=== PATIENT | male | born 1940 | race Caucasian/White ===

== ENCOUNTER 2017-10-24 10:23 | Emergency (ER) | payer MEDICARE, BC ==
[2017-10-24 10:58] LABS: URINE APPEARANCE CLEAR; URINE BILIRUBIN NEGATIVE (NEGATIVE); URINE BLOOD NEGATIVE (NEGATIVE); URINE COLOR YELLOW; URINE GLUCOSE (UA) NEGATIVE (NEGATIVE); URINE KETONE NEGATIVE (NEGATIVE); URINE LEUKOCYTE ESTERASE SMALL (NEGATIVE); URINE NITRITE NEGATIVE (NEGATIVE); URINE PROTEIN NEGATIVE (NEGATIVE); URINE UROBILINOGEN 0.2 E.U./dL (0.20 - 1.00)
[2017-10-24 11:04] LABS: URINE RBC 0 - 2 (NONE SEEN)
[2017-10-24 11:05] LABS: URINE EPITHELIAL CELLS 0 - 2 (FEW); URINE WBC 0 - 2 (0-2/hpf)
[2017-10-24] MEDS ORDERED: CIPROFLOXACIN HCL 500 MG TABLET PO ONE (11:54)
--- NOTE | 2017-10-24 11:54 | Emergency Department Record ---
History of Present Illness - General Chief complaint: Male Urogenital Problem Stated complaint: URINARY PROBLEMS Time Seen by Provider: 10/24/17 11:03 Source: Patient, RN notes reviewed Mode of Arrival: Ambulatory - History of Present Illness Initial comments: patient states burning of penis with urination and bladder scan done after urination 130 ml left in bladder and he is also on flomax. Onset/Timin -: Days(s) Radiation: None Quality: Aching Consistency: Constant Improves with: None Worsens with: None Reports: Dysuria - Related Data Home Medications Medication Instructions Recorded Confirmed Last Taken Linagliptin [Tradjenta] 5 mg PO DAILY 10/24/17 10/24/17 Unknown Previous Rx's Medication Instructions Recorded Rivaroxaban [Xarelto] 20 mg PO QPM #30 tablet 12/19/14 Ciprofloxacin HCl [Cipro] 500 mg PO Q12HR #20 tablet 10/24/17 Allergies Allergy/AdvReac Type Severity Reaction Status Date / Time morphine AdvReac Intermediate VOMITING Verified 05/03/16 08:49 Travel Screening - Travel/Exposure Within Last 30 Days Have you traveled within the last 30 days?: No Review of Systems Reviewed: No additional complaints except as noted below Constitutional: Reports: As per HPI. Denies: Chills, Fever, Malaise, Night sweats, Weakness, Weight change Eyes: Reports: As per HPI. Denies: Eye discharge, Eye pain, Photophobia, Vision change ENT: Reports: As per HPI. Denies: Congestion, Dental pain, Ear pain, Epistaxis , Hearing loss, Throat pain Respiratory: Reports: As per HPI. Denies: Cough, Dyspnea, Hemoptysis, Stridor, Wheezes Cardiovascular: Reports: As per HPI. Denies: Arrhythmia, Chest pain, Dyspnea on exertion, Edema, Murmurs, Orthopnea, Palpitations, Paroxysmal nocturnal dyspnea, Rheumatic Fever, Syncope Endocrine: Reports: As per HPI. Denies: Fatigue, Heat or cold intolerance, Polydipsia, Polyuria Gastrointestinal: Reports: As per HPI. Denies: Abdominal pain, Constipation, Diarrhea, Hematemesis, Hematochezia, Melena, Nausea, Vomiting Genitourinary: Reports: As per HPI. Denies: Dysuria, Frequency, Hematuria, Incontinence, Retention, Testicular pain, Testicular mass, Urgency Musculoskeletal: Reports: As per HPI. Denies: Arthralgia, Back pain, Gout, Joint swelling, Myalgia, Neck pain Skin: Reports: As per HPI. Denies: Bruising, Change in color, Change in hair/ nails, Lesions, Pruritus, Rash Neurological: Reports: As per HPI. Denies: Abnormal gait, Confusion, Headache, Numbness, Paresthesias, Seizure, Tingling, Tremors, Vertigo, Weakness Psychiatric: Reports: As per HPI. Denies: Anxiety, Auditory hallucinations, Depression, Homicidal thoughts, Suicidal thoughts, Visual hallucinations Hematological/Lymphatic: Reports: As per HPI. Denies: Anemia, Blood Clots, Easy bleeding, Easy bruising, Swollen glands Past Medical History - SOCIAL HISTORY Smoking Status: Former smoker - RESPIRATORY Hx Respiratory Disorders: No - CARDIOVASCULAR Hx Cardio Disorders: Yes Hx Cardiac Cath: Yes Hx Edema: Yes Hx Hypertension: Yes Hx Irregular Heartbeat: Yes (afib) - NEURO Hx Neuro Disorders: No - GI Hx GI Disorders: No Hx Diverticulitis: Yes - Hx Genitourinary Disorders: Yes Hx Prostate Problems: Yes (Takes Flomax) - ENDOCRINE Hx Endocrine Disorders: Yes Hx Diabetes: Yes Hx Thyroid Disease: Yes (hypo) - MUSCULOSKELETAL Hx Musculoskeletal Disorders: No - PSYCH Hx Psych Problems: No - HEMATOLOGY/ONCOLOGY Hx Hematology/Oncology Disorders: No Hx Bruising: Yes Hx 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) Hx Chemotherapy: No Hx Radiation Therapy: No Comment:: Bruising due to Xeralto medication Family Medical History Any Significant Family History?: Yes *Cancer Comment: Aunt Hx Heart Disease: Mother Physical Exam - General General Appearance: Alert, Oriented x3, Cooperative, No acute distress - Head Head exam: Normal inspection - Eye Eye exam: Normal appearance, PERRL Pupils: Normal accommodation - ENT ENT exam: Normal exam, Mucous membranes moist, Normal external ear exam, Normal orophraynx, TM's normal bilaterally Ear exam: Normal external inspection. negative: External canal tenderness Nasal Exam: Normal inspection. negative: Discharge, Sinus tenderness Mouth exam: Normal external inspection, Tongue normal Teeth exam: Normal inspection. negative: Dental caries Throat exam: Normal inspection. negative: Tonsillar erythema, Tonsillar exudate - Neck Neck exam: Normal inspection, Full ROM. negative: Tenderness - Respiratory Respiratory exam: Normal lung sounds bilaterally. negative: Respiratory distress - Cardiovascular Cardiovascular Exam: Regular rate, Normal rhythm, Normal heart sounds - GI/Abdominal GI/Abdominal exam: Soft, Normal bowel sounds. negative: Tenderness - Rectal Rectal exam: Deferred - exam: Deferred - Extremities Extremities exam: Normal inspection, Full ROM, Normal capillary refill. negative: Tenderness - Back Back exam: Reports: Normal inspection, Full ROM. Denies: Muscle spasm, Rash noted, Tenderness - Neurological Neurological exam: Alert, Normal gait, Oriented X3, Reflexes normal - Psychiatric Psychiatric exam: Normal affect, Normal mood - Skin Skin exam: Dry, Intact, Normal color, Warm Course Vital Signs 10/24/17 10:29 Temperature 97.8 F Pulse Rate 82 Respiratory 18 Rate Blood Pressure 101/83 Pulse Ox 97 Medical Decision Making - Lab Data Lab Results 10/24/17 Range/Units 10:44 Urine Color Yellow Urine Appearance Clear Urine pH 5.5 (5.0-8.0) Ur Specific [place] 1.020 (1.002-1.030) Urine Protein Negative (NEGATIVE) Urine Glucose (UA) Negative (NEGATIVE) Urine Ketones Negative (NEGATIVE) Urine Blood Negative (NEGATIVE) Urine Nitrite Negative (NEGATIVE) Urine Bilirubin Negative (NEGATIVE) Urine Urobilinogen 0.2 (0.20 - 1.00) E.U./dL Ur Leukocyte Esterase Small H (NEGATIVE) Urine RBC 0 - 2 (NONE SEEN) Urine WBC 0 - 2 (0-2/hpf) Ur Epithelial Cells 0 - 2 (FEW) Disposition Clinical Impression: Dysuria, Urethritis Disposition: Home, Self-Care Condition: (1) Good Instructions: Nonspecific Urethritis in Men (ED) Additional Instructions: follow up with family in 2-8 days Prescriptions: Ciprofloxacin HCl [Cipro] 500 mg PO Q12HR #20 tablet Forms: Patient Portal Access Time of Disposition: 11:55 Quality - Quality Measures Quality Measures: N/A - Blood Pressure Screening Does Patient Have Any of the Following: No, Active Dx of HTN Blood Pressure Classification: Pre-Hypertensive BP Reading Systolic Measurement: 101 Diastolic Measurement: 83 Screening for High Blood Pressure: < Pre-Hypertensive BP, F/U Documented > [ G8950] Pre-Hypertensive Follow-up Interventions: Referral to alternative/primary care provider.
[2017-10-24] MEDS: CIPROFLOXACIN HCL 500 MG TABLET PO ONE ×2 (11:59)
== END 2017-10-24 12:07 | disposition home or self-care (01) ==
LOC: ER 10:23
DX: N34.2 Other urethritis (principal); R30.0 Dysuria; I10 Essential (primary) hypertension; Z87.891 Personal history of nicotine dependence
CPT/HCPCS: 81001; 99283

== ENCOUNTER 2017-12-09 07:22 | Emergency (ER) | payer MEDICARE, BC ==
[2017-12-09] MEDS ORDERED: TOPICAL LIDOCAINE W/ EPI 5 ML TOP ONE (07:39)
[2017-12-09] MEDS ORDERED: OXYMETAZOLINE HCL 15 ML BTL NASAL ONE (07:39)
--- NOTE | 2017-12-09 07:40 | Emergency Department Record ---
History of Present Illness - General Chief complaint: Nosebleed/epistaxis Stated complaint: BLOODY NOSE ON BLOOD THINNERS Time Seen by Provider: 12/09/17 07:34 Source: Patient Mode of Arrival: Ambulatory Limitations: No limitations - History of Present Illness Initial comments: The patient is here due to a nose bleed out of the L nares for an hour. He denies any recent medical issues. The patient states he has a hx of similar problems and is on ASA and Xarelto. complaint: Epistaxis Onset/Timin -: Hour(s) Location: Nose Context-Epistaxis: Aspirin use, Other - Related Data Home Medications Medication Instructions Recorded Confirmed Last Taken Furosemide [Lasix] 20 mg PO ASDIR 12/09/17 12/09/17 12/09/17 Previous Rx's Medication Instructions Recorded Rivaroxaban [Xarelto] 20 mg PO QPM #30 tablet 12/19/14 Ciprofloxacin HCl [Cipro] 500 mg PO Q12HR #20 tablet 10/24/17 Allergies Allergy/AdvReac Type Severity Reaction Status Date / Time morphine AdvReac Intermediate VOMITING Verified 12/09/17 07:36 Travel Screening - Travel/Exposure Within Last 30 Days Have you traveled within the last 30 days?: No - Travel/Exposure Within Last Year Have you traveled outside the [place] in the last year?: No - Additonal Travel Details Have you been exposed to anyone with a communicable illness?: No Review of Systems Constitutional: Denies: Chills, Fever Past Medical History - SOCIAL HISTORY Smoking Status: Former smoker Alcohol Use: None Drug Use: None - RESPIRATORY Hx Respiratory Disorders: No - CARDIOVASCULAR Hx Cardio Disorders: Yes Hx Cardiac Cath: Yes Hx CHF: Yes Hx Edema: Yes Hx Heart Attack: Yes (2016) Hx Hypertension: Yes Hx Irregular Heartbeat: Yes (afib) - NEURO Hx Neuro Disorders: No - GI Hx GI Disorders: No Hx Diverticulitis: Yes - Hx Genitourinary Disorders: Yes Hx Prostate Problems: Yes (Takes Flomax) - ENDOCRINE Hx Endocrine Disorders: Yes Hx Diabetes: Yes Hx Thyroid Disease: Yes (hypo) - MUSCULOSKELETAL Hx Musculoskeletal Disorders: No - PSYCH Hx Psych Problems: No - HEMATOLOGY/ONCOLOGY Hx Hematology/Oncology Disorders: No Hx Bruising: Yes Hx 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) Hx Chemotherapy: No Hx Radiation Therapy: No Comment:: Bruising due to Xeralto medication Family Medical History Any Significant Family History?: No *Cancer Comment: Aunt Hx Heart Disease: Mother Physical Exam - General General Appearance: Alert, Oriented x3, Cooperative, No acute distress Course Vital Signs 12/09/17 07:32 Temperature 97.5 F L Pulse Rate [ 79 Pulse Ox Probe] Respiratory 16 Rate Blood Pressure 130/72 [Left Arm] Pulse Ox 99 - Reevaluation(s) Reevaluation #1: Procedure note: The L nares was prepped with TLE and Afrin. A possible bleeding source was cauterized over the medial septum anteriorly. There were no complications. 12/09/17 08:14 12/09/17 08:15 Reevaluation #2: The patient is doing very well at this time. He has had no further bleeding and is resting comfortably. 12/09/17 08:58 Disposition Disposition: Discharge Clinical Impression: Anterior epistaxis Disposition: Home, Self-Care Condition: (2) Stable Instructions: Nosebleed (ED) Additional Instructions: Please use saline spray in the L nares twice a day for 3 days. Please keep your appointment with your ENT doctor for Tuesday. Return to the ER for any recurrent bleeding or any problems. Forms: Patient Portal Access Time of Disposition: 09:06 Quality - Quality Measures Quality Measures: N/A - Blood Pressure Screening View Details: Yes Does Patient Have Any of the Following: No Blood Pressure Classification: Normal BP Reading Systolic Measurement: 98 Diastolic Measurement: 69 Screening for High Blood Pressure: < Normal BP, F/U Not Required > [G8783]
--- NOTE | 2017-12-12 10:54 | Emergency Department Record ---
History of Present Illness - General Chief complaint: Nosebleed/epistaxis Stated complaint: BLOODY NOSE ON BLOOD THINNERS Time Seen by Provider: 12/09/17 07:34 Source: Patient Mode of Arrival: Ambulatory Limitations: No limitations - History of Present Illness complaint: Epistaxis Onset/Timin -: Hour(s) Location: Nose Context-Epistaxis: Aspirin use, Other - Related Data Home Medications Medication Instructions Recorded Confirmed Last Taken Furosemide [Lasix] 20 mg PO ASDIR 12/09/17 12/09/17 12/09/17 Previous Rx's Medication Instructions Recorded Rivaroxaban [Xarelto] 20 mg PO QPM #30 tablet 12/19/14 Ciprofloxacin HCl [Cipro] 500 mg PO Q12HR #20 tablet 10/24/17 Allergies Allergy/AdvReac Type Severity Reaction Status Date / Time morphine AdvReac Intermediate VOMITING Verified 12/09/17 07:36 Travel Screening - Travel/Exposure Within Last 30 Days Have you traveled within the last 30 days?: No - Travel/Exposure Within Last Year Have you traveled outside the [place] in the last year?: No - Additonal Travel Details Have you been exposed to anyone with a communicable illness?: No Review of Systems Constitutional: Denies: Chills, Fever Past Medical History - SOCIAL HISTORY Smoking Status: Former smoker Alcohol Use: None Drug Use: None - RESPIRATORY Hx Respiratory Disorders: No - CARDIOVASCULAR Hx Cardio Disorders: Yes Hx Cardiac Cath: Yes Hx CHF: Yes Hx Edema: Yes Hx Heart Attack: Yes (2015) Hx Hypertension: Yes Hx Irregular Heartbeat: Yes (afib) - NEURO Hx Neuro Disorders: No - GI Hx GI Disorders: No Hx Diverticulitis: Yes - Hx Genitourinary Disorders: Yes Hx Prostate Problems: Yes (Takes Flomax) - ENDOCRINE Hx Endocrine Disorders: Yes Hx Diabetes: Yes Hx Thyroid Disease: Yes (hypo) - MUSCULOSKELETAL Hx Musculoskeletal Disorders: No - PSYCH Hx Psych Problems: No - HEMATOLOGY/ONCOLOGY Hx Hematology/Oncology Disorders: No Hx Bruising: Yes Hx 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) Hx Chemotherapy: No Hx Radiation Therapy: No Comment:: Bruising due to Xeralto medication Family Medical History Any Significant Family History?: No *Cancer Comment: Aunt Hx Heart Disease: Mother Physical Exam - General General Appearance: Alert, Oriented x3, Cooperative, No acute distress Limitations: No limitations - Head Head exam: Atraumatic - Eye Eye exam: Normal appearance, PERRL - ENT Nasal Exam: Active bleeding (There is bleeding from the anterior mid L nasal septum.). negative: Normal inspection, Discharge, Dried blood, Sinus tenderness Throat exam: Normal inspection. negative: Tonsillar erythema, Tonsillar exudate - Neck Neck exam: Normal inspection, Full ROM. negative: Lymphadenopathy, Meningismus , Tenderness - Respiratory Respiratory exam: Normal lung sounds bilaterally. negative: Respiratory distress - Cardiovascular Cardiovascular Exam: Regular rate, Normal rhythm, Normal heart sounds Course Vital Signs 12/09/17 12/09/17 07:32 09:15 Temperature 97.5 F L 97.5 F L Pulse Rate 58 L Pulse Rate [ 79 Pulse Ox Probe] Respiratory 16 16 Rate Blood Pressure 98/69 Blood Pressure 130/72 [Left Arm] Pulse Ox 99 99 Disposition Clinical Impression: Anterior epistaxis Disposition: Home, Self-Care Condition: (2) Stable Instructions: Nosebleed (ED) Additional Instructions: Please use saline spray in the L nares twice a day for 3 days. Please keep your appointment with your ENT doctor for Tuesday. Return to the ER for any recurrent bleeding or any problems. Forms: Patient Portal Access Quality - Quality Measures Quality Measures: N/A - Blood Pressure Screening View Details: Yes Does Patient Have Any of the Following: No Blood Pressure Classification: Normal BP Reading Systolic Measurement: 98 Diastolic Measurement: 69 Screening for High Blood Pressure: < Normal BP, F/U Not Required > [G8783]
== END 2017-12-09 09:15 | disposition home or self-care (01) ==
LOC: ER 07:22
DX: R04.0 Epistaxis (principal); I48.91 Unspecified atrial fibrillation; I10 Essential (primary) hypertension; E11.9 Type 2 diabetes mellitus without complications; I50.9 Heart failure, unspecified; I25.2 Old myocardial infarction; Z87.891 Personal history of nicotine dependence
CPT/HCPCS: 30901; 99283

== ENCOUNTER 2018-03-23 13:40 | Emergency (ER) | payer MEDICARE, BC ==
[2018-03-23] MEDS ORDERED: THROMBIN/GELATIN FOAM HEMOSTAT (THROMBI-GEL) TP ONE (13:55)
--- NOTE | 2018-03-23 14:01 | Emergency Department Record ---
History of Present Illness - General Chief complaint: Extremity Problem Stated complaint: LT ARM INJURY Time Seen by Provider: 03/23/18 13:52 Source: Patient Mode of Arrival: Ambulatory Limitations: No limitations - History of Present Illness Initial comments: The patient is here due to a skin tear on the L arm from yesterday. The patient bumped the L forearm yesterday near the elbow and suffered a 1 cm skin tear. He did clean it and replace it. (His Td is UTD) Due to being on Xarelto the lac has continued to bleed so he decided to come to the ER. He denies any pain or discomfort. MD Complaint: Extremity pain Onset/Timin -: Days(s) Location: Left, Arm History of Same: No Radiation: None Improves with: Nothing Worsens with: Nothing - Related Data Previous Rx's Medication Instructions Recorded Rivaroxaban [Xarelto] 20 mg PO QPM #30 tablet 12/19/14 Allergies Allergy/AdvReac Type Severity Reaction Status Date / Time morphine AdvReac Intermediate VOMITING Verified 12/09/17 07:36 Travel Screening - Travel/Exposure Within Last 30 Days Have you traveled within the last 30 days?: No Review of Systems Constitutional: Denies: Chills, Fever Past Medical History - SOCIAL HISTORY Smoking Status: Former smoker Alcohol Use: None Drug Use: None - RESPIRATORY Hx Respiratory Disorders: No - CARDIOVASCULAR Hx Cardio Disorders: Yes Hx Cardiac Cath: Yes Hx CHF: Yes Hx Edema: Yes Hx Heart Attack: Yes (2015) Hx Hypertension: Yes Hx Irregular Heartbeat: Yes (afib) - NEURO Hx Neuro Disorders: No - GI Hx GI Disorders: No Hx Diverticulitis: Yes - Hx Genitourinary Disorders: Yes Hx Prostate Problems: Yes (Takes Flomax) - ENDOCRINE Hx Endocrine Disorders: Yes Hx Diabetes: Yes Hx Thyroid Disease: Yes (hypo) - MUSCULOSKELETAL Hx Musculoskeletal Disorders: No - PSYCH Hx Psych Problems: No - HEMATOLOGY/ONCOLOGY Hx Hematology/Oncology Disorders: No Hx Bruising: Yes Hx 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) Hx Chemotherapy: No Hx Radiation Therapy: No Comment:: Bruising due to Xeralto medication Family Medical History Any Significant Family History?: Yes *Cancer Comment: Aunt Hx Heart Disease: Mother Physical Exam - General General Appearance: Alert, Cooperative, No acute distress - Head Head exam: Atraumatic, Normocephalic - Eye Eye exam: Normal appearance, PERRL - Extremities Extremities exam: Full ROM, Normal capillary refill, Tenderness, Other ( Presently the skin tear appears very clean and just very mildly oozing. There is no active bleeding.). negative: Normal inspection (There is a superficial skin tear to the L lateral proximal forearm. There is mild tenderness surrounding the wound. There is no swelling, bruising, or erythema present. ), Joint swelling Course Vital Signs 03/23/18 13:50 Temperature 98.2 F Pulse Rate [ 100 H Pulse Ox Probe] Respiratory 18 Rate Blood Pressure 114/74 [Right Arm] Pulse Ox 98 - Reevaluation(s) Reevaluation #1: I did discuss the need for a Thrombin pad to be placed on the wound with a Koban dressing. The patient is to keep it clean and dry for 2 days. 03/23/18 13:59 Disposition Disposition: Discharge Clinical Impression: Skin tear of elbow without complication Qualifiers: Encounter type: initial encounter Laterality: left Qualified Code(s): S51.012A - Laceration without foreign body of left elbow, initial encounter Disposition: Home, Self-Care Condition: (2) Stable Instructions: Laceration (ED) Additional Instructions: Please keep clean and dry and do not remove until Tuesday. Return to the ER for any problems. Forms: Patient Portal Access Time of Disposition: 14:00 Quality - Quality Measures Quality Measures: N/A - Blood Pressure Screening View Details: Yes Does Patient Have Any of the Following: No Blood Pressure Classification: Normal BP Reading Systolic Measurement: 114 Diastolic Measurement: 74 Screening for High Blood Pressure: < Normal BP, F/U Not Required > [G8783]
== END 2018-03-23 14:06 | disposition home or self-care (01) ==
LOC: ER 13:40
DX: S51.012A Laceration without foreign body of left elbow, initial encounter (principal); W22.8XXA Striking against or struck by other objects, initial encounter; I48.91 Unspecified atrial fibrillation; I25.2 Old myocardial infarction; I10 Essential (primary) hypertension; Z79.01 Long term (current) use of anticoagulants; Z95.818 Presence of other cardiac implants and grafts; Z87.891 Personal history of nicotine dependence
CPT/HCPCS: 99283

== ENCOUNTER 2018-04-30 11:01 | Emergency (ER) | payer MEDICARE, BC ==
[2018-04-30] MEDS ORDERED: HYDROCODONE/APAP 5/325MG TABLET PO ONE (11:21)
--- NOTE | 2018-04-30 11:22 | Emergency Department Record ---
History of Present Illness - General Chief Complaint: Back Pain/Injury Stated Complaint: BACK PAIN Time Seen by Provider: 04/30/18 11:15 Source: Patient Mode of Arrival: Ambulatory Limitations: No limitations - History of Present Illness Initial Comments: The patient is here due to R hip pain for 10-12 hours along with burning with urination. He has had similar problems before with a UTI. There is no reported back pain, AP, fever, chills, or vomiting. The patient is able to ambulate with minimal difficulty. MD Complaint: Other Onset/Timin -: Hour(s) Place: Home Context: Unknown Associated Symptoms: Difficulty urinating - Related Data Previous Rx's Medication Instructions Recorded Rivaroxaban [Xarelto] 20 mg PO QPM #30 tablet 12/19/14 Ciprofloxacin HCl [Cipro] 1 tab PO Q12H #14 tab 04/30/18 Hydrocodone/Acetaminophen [Bradley 1 each PO QID #12 tablet 04/30/18 5-325 Tablet] Allergies Allergy/AdvReac Type Severity Reaction Status Date / Time morphine AdvReac Intermediate VOMITING Verified 04/30/18 11:18 Travel Screening - Travel/Exposure Within Last 30 Days Have you traveled within the last 30 days?: No - Travel/Exposure Within Last Year Have you traveled outside the [place] in the last year?: No - Additonal Travel Details Have you been exposed to anyone with a communicable illness?: No - Travel Symptoms Symptom Screening: None Review of Systems Constitutional: Denies: Chills, Fever Eyes: Denies: Eye discharge ENT: Denies: Congestion Respiratory: Denies: Cough, Dyspnea Cardiovascular: Denies: Arrhythmia Past Medical History - SOCIAL HISTORY Smoking Status: Former smoker Alcohol Use: None Drug Use: None - RESPIRATORY Hx Respiratory Disorders: No - CARDIOVASCULAR Hx Cardio Disorders: Yes Hx Cardiac Cath: Yes Hx CHF: Yes Hx Edema: Yes Hx Heart Attack: Yes (2016) Hx Hypertension: Yes Hx Irregular Heartbeat: Yes (afib) - NEURO Hx Neuro Disorders: No - GI Hx GI Disorders: No Hx Diverticulitis: Yes - Hx Genitourinary Disorders: Yes Hx Prostate Problems: Yes (Takes Flomax) - ENDOCRINE Hx Endocrine Disorders: Yes Hx Diabetes: Yes Hx Thyroid Disease: Yes (hypo) - MUSCULOSKELETAL Hx Musculoskeletal Disorders: No - PSYCH Hx Psych Problems: No - HEMATOLOGY/ONCOLOGY Hx Hematology/Oncology Disorders: No Hx Bruising: Yes Hx 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) Hx Chemotherapy: No Hx Radiation Therapy: No Comment:: Bruising due to Xeralto medication Family Medical History Any Significant Family History?: No *Cancer Comment: Aunt Hx Heart Disease: Mother Physical Exam - General General Appearance: Alert, Oriented x3, Cooperative, No acute distress - Head Head exam: Atraumatic, Normocephalic, Normal inspection - Eye Eye exam: Normal appearance, PERRL - Neck Neck exam: Normal inspection, Full ROM. negative: Tenderness - Respiratory Respiratory exam: Normal lung sounds bilaterally. negative: Respiratory distress - Cardiovascular Cardiovascular Exam: Regular rate, Normal rhythm, Normal heart sounds - GI/Abdominal GI/Abdominal exam: Soft, Normal bowel sounds. negative: Rebound, Rigid, Tenderness (The abdomen is very soft and nontender.) - Extremities Extremities exam: Normal inspection, Full ROM (There is normal ROM of the R hip with mild pain.), Normal capillary refill. negative: Tenderness - Back Back exam: Reports: Normal inspection, Full ROM. Denies: CVA tenderness (R), CVA tenderness (L), Muscle spasm, Paraspinal tenderness, Rash noted, Tenderness , Vertebral tenderness - Neurological Neurological exam: Alert, Normal gait, Oriented X3. negative: Abnormal gait, Motor sensory deficit Course Vital Signs 04/30/18 11:07 Temperature 97.8 F Pulse Rate 98 H Respiratory 20 Rate Blood Pressure 112/58 Pulse Ox 98 - Reevaluation(s) Reevaluation #1: The patient is doing better at this time. He denies any AP, back pain or any hip pain. He is able to get up walking with no problems or difficulty. I did explain that the lab work was WNL's for him but it appears he does have a UTI. We will continue the Cipro and have the patient see his PCP later this week if needed. 04/30/18 12:18 Medical Decision Making - Data Complexity MDM Data: Labs Ordered and/or Reviewed, X-Ray Ordered and/or Reviewed - Lab Data Result diagrams: 04/30/18 11:33 04/30/18 11:33 - Radiology Data Radiology results: Report reviewed (R Hip: Neg.) Disposition Disposition: Discharge Clinical Impression: UTI (urinary tract infection) Qualifiers: Urinary tract infection type: acute cystitis Hematuria presence: without hematuria Qualified Code(s): N30.00 - Acute cystitis without hematuria Disposition: Home, Self-Care Condition: (2) Stable Instructions: Urinary Tract Infection in Men (ED) Additional Instructions: Please continue the Cipro and use the Bradley for pain. Please see your family doctor for recheck later this week. Return to the ER for any increased hip pain , fever, abdominal pain, back pain, or vomiting. Prescriptions: Ciprofloxacin HCl [Cipro] 1 tab PO Q12H #14 tab Hydrocodone/Acetaminophen [Bradley 5-325 Tablet] 1 each PO QID #12 tablet Forms: Patient Portal Access Time of Disposition: 12:22 Quality - Quality Measures Quality Measures: N/A - Blood Pressure Screening View Details: Yes Does Patient Have Any of the Following: No Blood Pressure Classification: Normal BP Reading Systolic Measurement: 112 Diastolic Measurement: 58 Screening for High Blood Pressure: < Normal BP, F/U Not Required > [G8783]
[2018-04-30 11:41] LABS: BASO % 0.1 % (0-6); EOS % 3.2 % (0-6); GRAN % 75.1 % (47-80); HEMATOCRIT 41.2 % (42.0-52.0); HEMOGLOBIN 13.6 gm/dl (14.0-18.0); LYMPH % 12.7 % (16-45); MEAN CELL VOLUME 90.7 fl (81-97); MEAN PLATELET VOLUME 10.2 fl (7.4-10.4); MONO % 8.9 % (0-9); PLATELET COUNT 207 K/uL (130-400); RED BLOOD COUNT 4.54 M/uL (4.40-5.70); RED CELL DISTRIBUTION WIDTH 13.1 % (11.5-14.5); WHITE BLOOD COUNT W/O DIFF 7.2 K/uL (4.2-12.2)
[2018-04-30 11:42] LABS: URINE APPEARANCE CLOUDY; URINE BILIRUBIN NEGATIVE (NEGATIVE); URINE BLOOD SMALL (NEGATIVE); URINE COLOR YELLOW; URINE GLUCOSE (UA) NEGATIVE (NEGATIVE); URINE KETONE NEGATIVE (NEGATIVE); URINE LEUKOCYTE ESTERASE LARGE (NEGATIVE); URINE NITRITE NEGATIVE (NEGATIVE); URINE PROTEIN TRACE (NEGATIVE); URINE UROBILINOGEN 0.2 E.U./dL (0.20 - 1.00)
[2018-04-30 11:44] LABS: MEAN CORPUSCULAR HEMOGLOBIN 29.9 pg (27-33)
[2018-04-30 11:51] LABS: URINE BACTERIA NONE SEEN; URINE EPITHELIAL CELLS 0 - 2 (FEW)
[2018-04-30 11:54] LABS: INR 1.2; PARTIAL THROMBOPLASTIN TIME 37.8 SECONDS (24.5-39.1); PROTHROMBIN TIME (PATIENT) 13.4 SECONDS (9.5-12.1)
[2018-04-30] MEDS ORDERED: CIPROFLOXACIN HCL 500 MG TABLET PO ONE ×2 (11:54→12:03)
[2018-04-30 11:55] LABS: CREATININE 1.9 mg/dL (0.7-1.2)
--- NOTE | 2018-05-02 15:17 | RADIOLOGY REPORT ---
EXAM: RIGHT HIP WITH AP PELVIS HISTORY: RIGHT HIP PAIN FOR A DAY, NO KNOWN INJURY. TECHNIQUE: AP view of the pelvis, and AP and lateral views of the right hip were obtained. Comparison: Right hip series 06/26/13. FINDINGS: Mild vascular calcification seen overlying the right hip, also present previously. The right hip appears otherwise essentially negative. No fracture, dislocation, or destructive lesion seen. The joint space appears maintained. There is probably some mild diffuse osteoporosis present. IMPRESSION: 1. MILD OSTEOPOROSIS. 2. SOME VASCULAR CALCIFICATION OVERLYING THE RIGHT HIP. 3. THE RIGHT HIP APPEARS OTHERWISE NEGATIVE. JOB NUMBER: [id number] [facility]
== END 2018-04-30 12:33 | disposition home or self-care (01) ==
LOC: ER 11:01
DX: N30.00 Acute cystitis without hematuria (principal); M25.551 Pain in right hip; I10 Essential (primary) hypertension; Z87.891 Personal history of nicotine dependence; Z79.01 Long term (current) use of anticoagulants; Z95.5 Presence of coronary angioplasty implant and graft
CPT/HCPCS: 80048; 81001; 85025; 85610; 85730; 99283; 99284

== ENCOUNTER 2018-07-14 20:32 | Emergency (ER) | payer MEDICARE, BC ==
--- NOTE | 2018-07-14 20:43 | Emergency Department Record ---
History of Present Illness - General Chief complaint: Male Urogenital Problem Stated complaint: CANT URINATE/ Time Seen by Provider: 07/14/18 20:34 Source: Patient Mode of Arrival: Ambulatory Limitations: No limitations - History of Present Illness Initial comments: 78 yo male presents to ED for evaluation of urinary retention symptoms. Patient underwent TURP procedure last week, went to see his urologist this morning to have his catheter removed. Patient reports that he has not been able to urinate following catheter removal. Patient denies fevers, chills, nausea, or vomiting symptoms. MD Complaint: Other Onset/Timin -: Days(s) Location: Abdomen Radiation: None Severity: Severe Quality: Other (cramping) Consistency: Constant Improves with: None Worsens with: None Recent surgery Reports: Denies other symptoms - Related Data Previous Rx's Medication Instructions Recorded Rivaroxaban [Xarelto] 20 mg PO QPM #30 tablet 12/19/14 Ciprofloxacin HCl [Cipro] 1 tab PO Q12H #14 tab 04/30/18 Hydrocodone/Acetaminophen [[place] 1 each PO QID #12 tablet 04/30/18 5-325 Tablet] Allergies Allergy/AdvReac Type Severity Reaction Status Date / Time morphine AdvReac Intermediate VOMITING Verified 04/30/18 11:18 Review of Systems Constitutional: Denies: Chills, Fever, Malaise, Night sweats Eyes: Denies: Eye discharge, Eye pain ENT: Denies: Congestion, Ear pain, Epistaxis Respiratory: Denies: Cough, Dyspnea Cardiovascular: Denies: Chest pain, Dyspnea on exertion Endocrine: Denies: Fatigue, Heat or cold intolerance Gastrointestinal: Reports: Abdominal pain. Denies: Nausea, Vomiting Genitourinary: Reports: Retention. Denies: Incontinence Musculoskeletal: Denies: Arthralgia, Back pain, Gout, Joint swelling Skin: Denies: Bruising, Change in color Neurological: Denies: Abnormal gait, Confusion, Headache, Seizure Psychiatric: Denies: Anxiety Hematological/Lymphatic: Denies: Anemia, Blood Clots Past Medical History - SOCIAL HISTORY Smoking Status: Former smoker Drug Use: None - RESPIRATORY Hx Respiratory Disorders: No - CARDIOVASCULAR Hx Cardio Disorders: Yes Hx Cardiac Cath: Yes Hx CHF: Yes Hx Edema: Yes Hx Heart Attack: Yes (2016) Hx Hypertension: Yes Hx Irregular Heartbeat: Yes (afib) - NEURO Hx Neuro Disorders: No - GI Hx GI Disorders: No Hx Diverticulitis: Yes - Hx Genitourinary Disorders: Yes Hx Prostate Problems: Yes (Takes Flomax) - ENDOCRINE Hx Endocrine Disorders: Yes Hx Diabetes: Yes Hx Thyroid Disease: Yes (hypo) - MUSCULOSKELETAL Hx Musculoskeletal Disorders: No - PSYCH Hx Psych Problems: No - HEMATOLOGY/ONCOLOGY Hx Hematology/Oncology Disorders: No Hx Bruising: Yes 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 negative: Conjunctival injection, Periorbital swelling, Periorbital tenderness, Scleral icterus - ENT Ear exam: negative: Auricular hematoma, Auricular trauma Nasal Exam: negative: Active bleeding, Discharge, Dried blood, Foreign body Mouth exam: negative: Drooling, Laceration, Muffled voice, Tongue elevation - Neck Neck exam: Normal inspection. negative: Meningismus, Tenderness - Respiratory Respiratory exam: Normal lung sounds bilaterally. negative: Rales, Respiratory distress, Rhonchi, Stridor - Cardiovascular Cardiovascular Exam: Regular rate, Normal rhythm, Normal heart sounds - GI/Abdominal GI/Abdominal exam: Soft, Tenderness (TTP and distension to the suprapubic region on examination). negative: Rebound, Rigid - Rectal Rectal exam: Deferred - exam: Deferred - Extremities Extremities exam: Normal inspection. negative: Pedal edema, Tenderness - Back Back exam: Denies: CVA tenderness (R), CVA tenderness (L) - Neurological Neurological exam: Alert, Normal gait, Oriented X3 - Psychiatric Psychiatric exam: Normal affect, Normal mood - Skin Skin exam: Normal color. negative: Abrasion Type of lesion: negative: abrasion Course - Reevaluation(s) Reevaluation #1: 07/14/18 21:21 Attempted 16 Argentine and 18 Argentine regular catheter without success Case was discussed with Dr. Morrison, recommends transfer to [facility] for Urology consultation and Romero catheter placement. 07/14/18 22:27 Case was discussed with Dr. Hewitt, will accept patient for transfer and likely urologic consultation. Disposition Disposition: Transfer Clinical Impression: Urinary retention Disposition: Acute Care Hospital Transfer Transfer To: [facility] Reason For Transfer: Acute urinmary retention Accepting Physician: Marcelina Time Discussed w/Accepting Physician: 21:25 Condition: (2) Stable Forms: Patient Portal Access Time of Disposition: 21:25 Quality - Quality Measures Quality Measures: N/A - Blood Pressure Screening Does Patient Have Any of the Following: No Blood Pressure Classification: Pre-Hypertensive BP Reading Systolic Measurement: 131 Diastolic Measurement: 86 Screening for High Blood Pressure: < Pre-Hypertensive BP, F/U Documented > [ G8950] Pre-Hypertensive Follow-up Interventions: Referral to alternative/primary care provider.
[2018-07-14] MEDS ORDERED: LIDOCAINE UROJECT 10 ML APPL MM ONE (21:35)
== END 2018-07-14 21:45 | disposition short-term general hospital (02) ==
LOC: ER 20:32
DX: R33.8 Other retention of urine (principal); I10 Essential (primary) hypertension; I25.2 Old myocardial infarction; I48.91 Unspecified atrial fibrillation; Z87.891 Personal history of nicotine dependence; Z98.890 Other specified postprocedural states
CPT/HCPCS: 99285

== ENCOUNTER 2018-07-30 23:58 | Inpatient (IN) | payer MEDICARE, BC ==
--- NOTE | 2018-07-31 00:25 | Emergency Department Record ---
History of Present Illness - General Chief Complaint: Fever Stated Complaint: CHILLS AND FEVER Time Seen by Provider: 07/31/18 00:04 Source: Patient, Family Mode of Arrival: Ambulatory Limitations: No limitations - History of Present Illness Initial Comments: pt has been having fever and chills. he denies pain. he has a mild cough. he had a recent TURP and difficulties w urination Complaint: Fever Onset/Timin -: Days(s) Maximum Temperature: 101.3 F Temperature Source: Oral Associated Symptoms: Chills, Cough Treatments Prior to Arrival: None - Related Data Previous Rx's Medication Instructions Recorded Rivaroxaban [Xarelto] 20 mg PO QPM #30 tablet 12/19/14 Ciprofloxacin HCl [Cipro] 1 tab PO Q12H #14 tab 04/30/18 Hydrocodone/Acetaminophen [[place] 1 each PO QID #12 tablet 04/30/18 5-325 Tablet] Allergies Allergy/AdvReac Type Severity Reaction Status Date / Time morphine AdvReac Intermediate VOMITING Verified 07/31/18 00:16 Travel Screening - Travel/Exposure Within Last 30 Days Have you traveled within the last 30 days?: No - Travel/Exposure Within Last Year Have you traveled outside the [place] in the last year?: No - Additonal Travel Details Have you been exposed to anyone with a communicable illness?: No - Travel Symptoms Symptom Screening: Fever (Subjective) Review of Systems Reviewed: No additional complaints except as noted below Constitutional: Reports: As per HPI, Chills, Fever. Denies: Malaise, Night sweats, Weakness, Weight change Eyes: Reports: As per HPI. Denies: Eye discharge, Eye pain, Photophobia, Vision change ENT: Reports: As per HPI. Denies: Congestion, Dental pain, Ear pain, Epistaxis , Hearing loss, Throat pain Respiratory: Reports: As per HPI, Cough. Denies: Dyspnea, Hemoptysis, Stridor, Wheezes Cardiovascular: Reports: As per HPI. Denies: Arrhythmia, Chest pain, Dyspnea on exertion, Edema, Murmurs, Orthopnea, Palpitations, Paroxysmal nocturnal dyspnea, Rheumatic Fever, Syncope Endocrine: Reports: As per HPI. Denies: Fatigue, Heat or cold intolerance, Polydipsia, Polyuria Gastrointestinal: Reports: As per HPI. Denies: Abdominal pain, Constipation, Diarrhea, Hematemesis, Hematochezia, Melena, Nausea, Vomiting Genitourinary: Reports: As per HPI. Denies: Dysuria, Frequency, Hematuria, Incontinence, Retention, Testicular pain, Testicular mass, Urgency Musculoskeletal: Reports: As per HPI. Denies: Arthralgia, Back pain, Gout, Joint swelling, Myalgia, Neck pain Skin: Reports: As per HPI. Denies: Bruising, Change in color, Change in hair/ nails, Lesions, Pruritus, Rash Neurological: Reports: As per HPI. Denies: Abnormal gait, Confusion, Headache, Numbness, Paresthesias, Seizure, Tingling, Tremors, Vertigo, Weakness Psychiatric: Reports: As per HPI. Denies: Anxiety, Auditory hallucinations, Depression, Homicidal thoughts, Suicidal thoughts, Visual hallucinations Hematological/Lymphatic: Reports: As per HPI. Denies: Anemia, Blood Clots, Easy bleeding, Easy bruising, Swollen glands Past Medical History - SOCIAL HISTORY Smoking Status: Former smoker Alcohol Use: None Drug Use: None - RESPIRATORY Hx Respiratory Disorders: No - CARDIOVASCULAR Hx Cardio Disorders: Yes Hx Cardiac Cath: Yes Hx CHF: Yes Hx Edema: Yes Hx Heart Attack: Yes (2016) Hx Hypertension: Yes Hx Irregular Heartbeat: Yes (afib) - NEURO Hx Neuro Disorders: No - GI Hx GI Disorders: No Hx Diverticulitis: Yes - Hx Genitourinary Disorders: Yes Hx Prostate Problems: Yes (Takes Flomax) - ENDOCRINE Hx Endocrine Disorders: Yes Hx Diabetes: Yes Hx Thyroid Disease: Yes (hypo) - MUSCULOSKELETAL Hx Musculoskeletal Disorders: No - PSYCH Hx Psych Problems: No - HEMATOLOGY/ONCOLOGY Hx Hematology/Oncology Disorders: No Hx Bruising: Yes 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 negative: External canal tenderness Nasal Exam: Normal inspection. negative: Discharge, Sinus tenderness Mouth exam: Normal external inspection, Tongue normal Teeth exam: Normal inspection. negative: Dental caries Throat exam: Normal inspection. negative: Tonsillar erythema, Tonsillar exudate - Neck Neck exam: Normal inspection, Full ROM. negative: Tenderness - Respiratory Respiratory exam: Normal lung sounds bilaterally. negative: Respiratory distress - Cardiovascular Cardiovascular Exam: Normal rhythm, Normal heart sounds, Tachycardia - GI/Abdominal GI/Abdominal exam: Soft, Normal bowel sounds. negative: Tenderness - Rectal Rectal exam: Deferred - exam: Deferred - Extremities Extremities exam: Normal inspection, Full ROM, Normal capillary refill. negative: Tenderness - Back Back exam: Reports: Normal inspection, Full ROM. Denies: Muscle spasm, Rash noted, Tenderness - Neurological Neurological exam: Alert, CN II-XII intact, Normal gait, Oriented X3 - Psychiatric Psychiatric exam: Normal affect, Normal mood - Skin Skin exam: Dry, Intact, Normal color, Warm Course Vital Signs 07/31/18 00:05 Temperature 98.6 F Pulse Rate 117 H Respiratory 18 Rate Blood Pressure 107/60 Pulse Ox 97 Medical Decision Making - Lab Data Result diagrams: 07/31/18 00:40 07/31/18 00:40 Disposition Disposition: Admit Clinical Impression: Pyelonephritis, Renal insufficiency Disposition: Still a Patient at [facility] Decision to Admit: Admit from ER Decision to Admit Date: 07/31/18 Decision to Admit Time: 01:21 Forms: Patient Portal Access Quality - Quality Measures Quality Measures: N/A - Blood Pressure Screening Does Patient Have Any of the Following: No Blood Pressure Classification: Normal BP Reading Systolic Measurement: 107 Diastolic Measurement: 60 Screening for High Blood Pressure: < Normal BP, F/U Not Required > [G8783]
[2018-07-31 00:50] LABS: HEMATOCRIT 36.5 % (42.0-52.0); HEMOGLOBIN 11.9 gm/dl (14.0-18.0); MEAN CELL VOLUME 90.6 fl (81-97); MEAN CORPUSCULAR HEMOGLOBIN 29.5 pg (27-33); MEAN CORPUSCULAR HGB CONC 32.6 g/dl (32-36); MEAN PLATELET VOLUME 10.4 fl (7.4-10.4); PLATELET COUNT 206 K/uL (130-400); RED BLOOD COUNT 4.03 M/uL (4.40-5.70); RED CELL DISTRIBUTION WIDTH 13.4 % (11.5-14.5); WHITE BLOOD COUNT W/O DIFF 12.6 K/uL (4.2-12.2)
[2018-07-31 00:51] LABS: URINE APPEARANCE CLOUDY; URINE BILIRUBIN NEGATIVE (NEGATIVE); URINE BLOOD LARGE (NEGATIVE); URINE COLOR YELLOW; URINE GLUCOSE (UA) NEGATIVE (NEGATIVE); URINE KETONE NEGATIVE (NEGATIVE); URINE LEUKOCYTE ESTERASE LARGE (NEGATIVE); URINE NITRITE NEGATIVE (NEGATIVE); URINE UROBILINOGEN 0.2 E.U./dL (0.20 - 1.00)
[2018-07-31 01:00] LABS: URINE EPITHELIAL CELLS 0 - 2 (FEW)
[2018-07-31 01:01] LABS: BILIRUBIN,TOTAL 0.9 mg/dL (0.2-1.0); CREATININE 1.8 mg/dL (0.7-1.2)
[2018-07-31 01:01] LABS: URINE BACTERIA 4+
[2018-07-31 01:02] LABS: TOTAL PROTEIN 5.9 g/dL (6.6-8.7)
[2018-07-31 01:06] LABS: ALB/GLOB RATIO 1.3 (1.1-1.8); ALBUMIN 3.3 g/dL (4.0-5.0)
[2018-07-31 01:14] LABS: ANISOCYTOSIS 1+; OVALOCYTES 1+; PLATELET ESTIMATE NORMAL (NORMAL)
[2018-07-31] MEDS ORDERED: CIPROFLOXACIN LACTATE/D5W 400 MG/200 ML BAG IVPB ONE (01:14)
[2018-07-31] MEDS ORDERED: CIPROFLOXACIN LACTATE/D5W 400 MG/200 ML BAG IVPB SCH (02:20)
[2018-07-31] MEDS ORDERED: ACETAMINOPHEN 500 MG TABLET PO PRN (02:20)
[2018-07-31] MEDS: LEVOTHYROXINE SODIUM 100 MCG TABLET PO SCH (06:29)
--- NOTE | 2018-07-31 09:10 | RADIOLOGY REPORT ---
EXAM: CHEST HISTORY: FEVER, CHILLS AND COUGH. TECHNIQUE: PA and lateral views of the chest were obtained. Comparison: Chest radiograph 09/11/15. FINDINGS: Implanted left side cardiac device. The cardiac silhouette is top normal in size. The pulmonary vasculature is nondilated. No focal consolidation, pleural effusion, or pneumothorax. No definite acute osseous findings. Small calcific densities are adjacent to the right humeral head, may represent calcific tendinosis. IMPRESSION: NO ACUTE LUNG FINDINGS. JOB NUMBER: [id number] [facility]
[2018-07-31] MEDS ORDERED: 0.9 % SODIUM CHLORIDE 1000ML 1,000 ML IV PRN (09:15)
[2018-07-31] MEDS: ASPIRIN 81 MG CHEWABLE TABLET PO SCH (09:35)
--- NOTE | 2018-07-31 09:43 | History & Physical ---
History of Present Illness - Date of Service Date of Service for History & Physical: 07/31/18 - History of Present Illness Admitting Diagnosis: Sepsis secondary UTI History of Present Illness: Mr. Archibald is an 78 y/o male with recent transurethral resection in May who presents with weakness, fever and chills over the past three days.The patient has had a protracted course of urinary retention and presentation to the ED over the past several weeks. The patient initially had a gaona catheter immediately after his procedure but reports that once removed he again had significant retention of urine requiring straight catheterization in the ED. Since then he notes that he has had urine stream, but his flow has been limited and he still has symptoms of burning. He denies blood in his urine, malodorous discharge, nausea, vomiting, headaches, abdominal or back pain. On presentation to [facility] ED the patient was noted to be tachycardic, mildly febrile, and had elevated white count. The patient's urine was suggestive of an acute urinary tract infection and he is admitted to the general medical floor for sepsis with IV antibiotics and fluid resuscitation. Vitals on admission: BP: 107/60 HR: 117 RR: 18 T: 98.6 Sats: 97% RA PCP: [facility]. Travel Screening - Travel/Exposure Within Last 30 Days Have you traveled within the last 30 days?: No - Travel/Exposure Within Last Year Have you traveled outside the [place] in the last year?: No - Additonal Travel Details Have you been exposed to anyone with a communicable illness?: No - Travel Symptoms Symptom Screening: Fever (GT 100.4), Weakness, Fatigue, Lack of Appetite, Chills Review of Systems Constitutional: Reports: As per HPI, Chills, Fever. Denies: Malaise, Night sweats, Weakness, Weight change Eyes: Reports: As per HPI. Denies: Eye discharge, Eye pain, Photophobia, Vision change ENT: Reports: As per HPI. Denies: Congestion, Dental pain, Ear pain, Epistaxis , Hearing loss, Throat pain Respiratory: Reports: As per HPI, Cough. Denies: Dyspnea, Hemoptysis, Stridor, Wheezes Cardiovascular: Reports: As per HPI. Denies: Arrhythmia, Chest pain, Dyspnea on exertion, Edema, Murmurs, Orthopnea, Palpitations, Paroxysmal nocturnal dyspnea, Rheumatic Fever, Syncope Endocrine: Reports: As per HPI. Denies: Fatigue, Heat or cold intolerance, Polydipsia, Polyuria Gastrointestinal: Reports: As per HPI. Denies: Abdominal pain, Constipation, Diarrhea, Hematemesis, Hematochezia, Melena, Nausea, Vomiting Genitourinary: Reports: As per HPI. Denies: Dysuria, Frequency, Hematuria, Incontinence, Retention, Testicular pain, Testicular mass, Urgency Musculoskeletal: Reports: As per HPI. Denies: Arthralgia, Back pain, Gout, Joint swelling, Myalgia, Neck pain Skin: Reports: As per HPI. Denies: Bruising, Change in color, Change in hair/ nails, Lesions, Pruritus, Rash Neurological: Reports: As per HPI. Denies: Abnormal gait, Confusion, Headache, Numbness, Paresthesias, Seizure, Tingling, Tremors, Vertigo, Weakness Psychiatric: Reports: As per HPI. Denies: Anxiety, Auditory hallucinations, Depression, Homicidal thoughts, Suicidal thoughts, Visual hallucinations Hematological/Lymphatic: Reports: As per HPI. Denies: Anemia, Blood Clots, Easy bleeding, Easy bruising, Swollen glands Past Medical History - SOCIAL HISTORY Smoking Status: Former smoker Alcohol Use: None Drug Use: None - RESPIRATORY Hx Respiratory Disorders: No - CARDIOVASCULAR Hx Cardio Disorders: Yes Hx Cardiac Cath: Yes Hx CHF: Yes Hx Edema: Yes Hx Heart Attack: Yes (2015) Hx Hypertension: Yes Hx Irregular Heartbeat: Yes (afib) Hx Pacemaker/Defib: Yes - NEURO Hx Neuro Disorders: No - GI Hx GI Disorders: No Hx Diverticulitis: Yes - Hx Genitourinary Disorders: Yes Hx Prostate Problems: Yes (recent TURP; Takes Flomax) - ENDOCRINE Hx Endocrine Disorders: Yes Hx Diabetes: Yes Hx Thyroid Disease: Yes (hypothyroid) - MUSCULOSKELETAL Hx Musculoskeletal Disorders: No - PSYCH Hx Psych Problems: No - HEMATOLOGY/ONCOLOGY Hx Hematology/Oncology Disorders: No Hx Bruising: Yes (takes Xarelto) Hx 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) Hx Chemotherapy: No Hx Radiation Therapy: No Family Medical History Any Significant Family History?: No *Cancer Comment: Aunt Hx Heart Disease: Mother H&P Meds/Allergies - Allergies Allergies: Allergies Allergy/AdvReac Type Severity Reaction Status Date / Time morphine AdvReac Intermediate VOMITING Verified 07/31/18 00:16 - Home Medications Home Medications Medication Instructions Recorded Confirmed Last Taken Rivaroxaban [Xarelto] 15 mg PO QPM 07/31/18 07/31/18 07/30/18 - Active Medications Active Medications: Current Medications Acetaminophen (Tylenol 500mg Tab) 1,000 mg PO Q6H PRN PRN Reason: PAIN - MILD(1-4)/FEVER Aspirin (Aspirin Chewable) 81 mg PO DAILY [facility] Atorvastatin Calcium (Lipitor) 20 mg PO QHS [facility] Furosemide (Lasix) 20 mg PO Q48H [facility] Ciprofloxacin Lactate (Cipro) 400 mg in 200 mls @ 200 mls/hr IVPB Q12H [facility] Stop: 08/05/18 13:01 Sodium Chloride () 1,000 mls @ 50 mls/hr IV .Q20H PRN PRN Reason: LARGE VOLUME IV Levothyroxine Sodium (Synthroid) 100 mcg PO DAILYTHY [facility] Last Admin: 07/31/18 06:29 Dose: 100 mcg Metoprolol Tartrate (Lopressor) 50 mg PO BID [facility] Non-Formulary Medication (Linagliptin [Tradjenta]) 5 mg PO DAILY [facility] Rivaroxaban (Xarelto) 15 mg PO 1900 [facility] Physical Exam - Vital Signs Vital Signs: Vital Signs - Last 24 Hrs Temp Pulse Pulse Resp BP BP Pulse Ox 07/31/18 08:23 121 H 16 07/31/18 06:00 97.9 F 102 H 16 98/59 96 07/31/18 02:19 99.0 F 87 18 117/68 98 07/31/18 02:10 99.9 F H 111 H 16 105/73 97 07/31/18 00:05 98.6 F 117 H 18 107/60 97 - General General Appearance: Alert, Oriented x3, Cooperative, Mild distress Limitations: No limitations - Head Head exam: Normal inspection - Eye Eye exam: Normal appearance, PERRL, EOMI Pupils: Normal accommodation - ENT ENT exam: Normal exam, Mucous membranes moist, Normal external ear exam, Normal orophraynx Ear exam: Normal external inspection. negative: External canal tenderness Nasal Exam: Normal inspection. negative: Discharge, Sinus tenderness Mouth exam: Normal external inspection, Tongue normal Teeth exam: Normal inspection. negative: Dental caries Throat exam: Normal inspection. negative: Tonsillar erythema, Tonsillar exudate - Neck Neck exam: Normal inspection, Full ROM. negative: Tenderness - Respiratory Respiratory exam: Normal lung sounds bilaterally. negative: Respiratory distress - Cardiovascular Cardiovascular Exam: Normal rhythm, Normal heart sounds, Tachycardia - GI/Abdominal GI/Abdominal exam: Soft, Normal bowel sounds. negative: Tenderness - Rectal Rectal exam: Deferred - exam: Deferred - Extremities Extremities exam: Normal inspection, Full ROM, Normal capillary refill. negative: Tenderness - Back Back exam: Reports: Normal inspection, Full ROM. Denies: Muscle spasm, Rash noted, Tenderness - Neurological Neurological exam: Alert, CN II-XII intact, Normal gait, Oriented X3 - Psychiatric Psychiatric exam: Normal affect, Normal mood - Skin Skin exam: Dry, Intact, Normal color, Warm Results - Labs Result Diagrams: 07/31/18 00:40 07/31/18 00:40 Labs Last 24 Hours: Laboratory Results - last 24 hr 07/31/18 07/31/18 07/31/18 00:15 00:40 00:40 WBC 12.6 H RBC 4.03 L Hgb 11.9 L Hct 36.5 L MCV 90.6 MCH 29.5 MCHC 32.6 RDW 13.4 Plt Count 206 MPV 10.4 Neutrophils % 82.0 H Band Neutrophils % 6.0 H Eosinophils % Not Reportable Basophils % Not Reportable Lymphocytes 4.0 L Monocytes 8.0 Platelet Estimate Normal Anisocytosis 1+ Ovalocytes 1+ Sodium 136 Potassium 3.9 Chloride 96 L Carbon Dioxide 21.0 L Anion Gap 19.0 H BUN 51 H Creatinine 1.8 H Estimated GFR 39 Random Glucose 186 H Calcium 9.0 Total Bilirubin 0.90 AST 16 ALT 21 Alkaline Phosphatase 74 Total Protein 5.9 L Albumin 3.3 L Globulin 2.6 Albumin/Globulin Ratio 1.3 Urine Color Yellow Urine Appearance Cloudy Urine pH 6.0 Ur Specific [place] 1.025 Urine Protein 100 mg/dl H Urine Glucose (UA) Negative Urine Ketones Negative Urine Blood Large H Urine Nitrite Negative Urine Bilirubin Negative Urine Urobilinogen 0.2 Ur Leukocyte Esterase Large H Urine RBC 3 - 6 Urine WBC Too numerous to cnt Ur Epithelial Cells 0 - 2 Urine Bacteria 4+ VTE H&P Assessment - Risk for VTE Risk for VTE: Yes Risk Level: High Risk Assessment Date: 07/31/18 Risk Assessment Time: 09:54 VTE Orders Placed or Will Be Placed: Yes Plan - Inpatient Certification Inpatient Certification: Admit to inpatient care: Based on my medical assessment, after consideration of patient's risk factors (age, co-morbidities and patient presenting symptoms and acuity), I expect that this patient will remain in the hospital greater than or equal to two midnights and that the services needed warrant inpatient care because: Patient Risk Factors: UTI, CHF, A fib Estimated length of stay: 48 hours The patient may reasonably be expected to be discharged or transferred to a hospital within 96 hours after admission to [facility]. Post hospital care (if known): Urology I certify that my determination is in accordance with my understanding of Medicare requirements for reasonable and necessary inpatient services. 07/31/18 09:34 - Detailed Diagnosis and Plan (1) Sepsis Current Visit: Yes Status: Acute Base Code: A41.9 - SEPSIS, UNSPECIFIED ORGANISM Comment: 07/31/18: - tachycardia, febrile, elevated WBCs, renal insufficiency. - on IV Ciprofloxacin 400mg Q12H, IV Nacl 0.9% 50mL/hr, Acetaminophen 325mg Q4H PRN for fever. - repeat CBC w/ diff with morning labs, Urine cultures pending. Blood cultures ordered but abx started prior. (2) Urinary tract infection Current Visit: Yes Status: Acute Qualifiers: Hematuria presence: without hematuria Base Code: N39.0 - URINARY TRACT INFECTION, SITE NOT SPECIFIED Comment: 07/31/18: - S/p TURP May, 2018 and straight cath in ED. - UA: leukocytes, hematuria, proteinuria, + 4 WBCs - UCX pending, cont IV Nacl 0.9% @ 50ml/hr. - Monitor urine output, recheck labs in the morning. - Consult to Urology for recommendations. (3) Renal insufficiency Current Visit: Yes Status: Acute Base Code: N28.9 - DISORDER OF KIDNEY AND URETER, UNSPECIFIED Comment: 07/31/18: - Bun/Cr: 51/1.8, Gfr 39. CKD III - No baseline to establish acute vs. chronic - Repeat electrolytes in the morning. - Avoid nephrotoxic medications, gentle hydration with IV fluids considering CHF. (4) A-fib Current Visit: Yes Status: Acute Base Code: I48.91 - UNSPECIFIED ATRIAL FIBRILLATION Comment: 07/31/18: - chronic atrial fibrillation. Currently in a fib on monitor. - rate controlled on Metoprolol 50mg BID PO , with holding parameters for HR <55 , SBP <110. - anticoagualted on Xarelto 15mg QD. [id number]: 4 (5) CHF (congestive heart failure) Current Visit: Yes Status: Acute Base Code: I50.9 - HEART FAILURE, UNSPECIFIED Comment: 07/31/18: - EF ?, CXR: negative for any acute cardiopulmonary findings. - Metoprolol 50mg BID PO, Atorvastatin 20mg, ASA 81, Lasix 20mg Q48H - Daily weights, I/Os, fluid restriction to 1.5 liters, Low sodium diet. (6) Diabetes Current Visit: No Status: Chronic Qualifiers: Diabetes mellitus type: type 2 Base Code: E11.9 - TYPE 2 DIABETES MELLITUS WITHOUT COMPLICATIONS Comment: 07/31/18: - Linagliptin 5mg, serum glucose 186 - accuchecks AcHs, ADA diet. (7) CAD, multiple vessel Current Visit: Yes Status: Acute Base Code: I25.10 - ATHSCL HEART DISEASE OF [place] CORONARY ARTERY W/O ANG PCTRS Comment: 07/31/18: - s/p stents x 2 - Metoprolol 50mg BID PO, ASA 81mg, Atorvastatin 20mg QHS. - continuous steward/stewardess lounge. (8) Hypothyroid Current Visit: Yes Status: Acute Base Code: E03.9 - HYPOTHYROIDISM, UNSPECIFIED Comment: 07/31/18: - Levothyroxine 100mcg daily. (9) DVT (deep venous thrombosis) Current Visit: Yes Status: Acute Base Code: I82.409 - ACUTE EMBOLISM AND THOMBOS UNSP DEEP VN UNSP LOWER EXTREMITY Comment: 07/31/18: - pt on therapeutic anticoagulation with xarelto. (10) Patient is full code Current Visit: Yes Status: Acute Base Code: Z78.9 - OTHER SPECIFIED HEALTH STATUS Comment: 07/31/18: - Full Code
[2018-07-31] MEDS ORDERED: TAMSULOSIN HCL 0.4 MG CAP.ER.24H PO SCH (10:00)
[2018-07-31] MEDS ORDERED: HYDROCODONE/APAP 5/325MG TABLET PO SCH (10:00)
[2018-07-31] MEDS ORDERED: METOPROLOL TART 50 MG TABLET PO SCH (10:00)
[2018-07-31] MEDS ORDERED: FUROSEMIDE 20 MG TABLET PO SCH (10:15)
[2018-07-31] MEDS: LINAGLIPTIN 5 MG PO SCH (10:47)
[2018-07-31] MEDS: METOPROLOL TART 25 MG TABLET PO SCH ×3 (12:44→21:35)
[2018-07-31] MEDS: CIPROFLOXACIN LACTATE/D5W 400 MG/200 ML BAG IVPB SCH (14:19)
[2018-07-31] MEDS ORDERED: RIVAROXABAN 20 MG TABLET PO SCH ×4 (17:00)
[2018-07-31] MEDS: RIVAROXABAN 15 MG TABLET PO SCH (18:31)
[2018-07-31] MEDS: ATORVASTATIN 20 MG TABLET PO SCH ×2 (18:40→21:35)
[2018-08-01] MEDS ORDERED: PNEUM 13-VAL/PF 0.5 ML IM ONE
[2018-08-01] MEDS: CIPROFLOXACIN LACTATE/D5W 400 MG/200 ML BAG IVPB SCH ×2 (04:54→13:48)
[2018-08-01] MEDS: LEVOTHYROXINE SODIUM 100 MCG TABLET PO SCH (06:17)
[2018-08-01 06:41] LABS: HEMATOCRIT 34.4 % (42.0-52.0); HEMOGLOBIN 11.2 gm/dl (14.0-18.0); MEAN CORPUSCULAR HEMOGLOBIN 29.6 pg (27-33); MEAN CORPUSCULAR HGB CONC 32.6 g/dl (32-36); MEAN PLATELET VOLUME 10.5 fl (7.4-10.4); PLATELET COUNT 184 K/uL (130-400); RED BLOOD COUNT 3.78 M/uL (4.40-5.70); RED CELL DISTRIBUTION WIDTH 13.4 % (11.5-14.5); WHITE BLOOD COUNT W/O DIFF 9.5 K/uL (4.2-12.2)
[2018-08-01 06:54] LABS: CREATININE 1.8 mg/dL (0.7-1.2)
[2018-08-01 07:00] LABS: PLATELET ESTIMATE NORMAL (NORMAL)
[2018-08-01] MEDS: METOPROLOL TART 25 MG TABLET PO SCH ×2 (09:41→18:28)
[2018-08-01] MEDS: ASPIRIN 81 MG CHEWABLE TABLET PO SCH (09:41)
[2018-08-01] MEDS: LINAGLIPTIN 5 MG PO SCH (09:41)
--- NOTE | 2018-08-01 14:14 | Physician Progress Note ---
Subjective - Date Date of Physician Progress Note: 08/01/18 (Burning with urination) Objective - Vital Signs Vital Signs: Vital Signs - Last 24 Hrs Temp Pulse Resp BP BP Pulse Ox 08/01/18 10:00 97.7 F 128 H 18 107/63 97 08/01/18 09:00 128 H 16 08/01/18 06:00 99.1 F 116 H 16 111/83 94 L 07/31/18 22:00 98.8 F 115 H 16 102/55 97 07/31/18 21:00 16 07/31/18 18:00 97.8 F 112 H 16 112/65 98 07/31/18 15:41 97.9 F 98/59 - General General Appearance: Alert, Oriented x3, Cooperative, Mild distress Limitations: No limitations - Head Head exam: Normal inspection - Eye Eye exam: Normal appearance, PERRL, EOMI Pupils: Normal accommodation - ENT ENT exam: Normal exam, Mucous membranes moist Ear exam: negative: External canal tenderness Nasal Exam: negative: Discharge, Sinus tenderness Teeth exam: negative: Dental caries Throat exam: negative: Tonsillar erythema, Tonsillar exudate - Neck Neck exam: negative: Tenderness - Respiratory Respiratory exam: Normal lung sounds bilaterally. negative: Respiratory distress - Cardiovascular Cardiovascular Exam: Irregular rhythm, Tachycardia. negative: Regular rate Peripheral Pulses: 1+: Dorsalis Pedis (R), Dorsalis Pedis (L) - GI/Abdominal GI/Abdominal exam: Soft, Normal bowel sounds. negative: Tenderness - Rectal Rectal exam: Deferred - exam: Deferred - Extremities Extremities exam: Normal inspection, Full ROM, Normal capillary refill. negative: Tenderness - Back Back exam: Reports: Normal inspection, Full ROM. Denies: CVA tenderness (R), CVA tenderness (L), Muscle spasm, Rash noted, Tenderness - Neurological Neurological exam: Alert, CN II-XII intact, Normal gait, Oriented X3 - Psychiatric Psychiatric exam: Normal affect, Normal mood - Skin Skin exam: Dry, Intact, Normal color, Warm Assessment and Plan - Assessment and Plan (1) Sepsis Current Visit: Yes Status: Acute Base Code: A41.9 - SEPSIS, UNSPECIFIED ORGANISM Comment: 08/01/18: -Tachycardia, low grade temp -WBC decreased from 12.6 to 9.5 -D/C IV fluids d/t pt 2L fluid restriction and tolerating oral fluids well -Change IV Ciprofloxacin BID to PO Ciprofloxacin 500mg PO BID x 12 more days -Urine and Blood cultures pending -repeat CBC w/diff with morning labs -Possible d/c on 08/02/2018 if tolerating PO Cipro and WBC decrease 07/31/18: - tachycardia, febrile, elevated WBCs, renal insufficiency. - on IV Ciprofloxacin 400mg Q12H, IV Nacl 0.9% 50mL/hr, Acetaminophen 325mg Q4H PRN for fever. - repeat CBC w/ diff with morning labs, Urine cultures pending. Blood cultures ordered but abx started prior. (2) Urinary tract infection Current Visit: Yes Status: Acute Qualifiers: Hematuria presence: without hematuria Base Code: N39.0 - URINARY TRACT INFECTION, SITE NOT SPECIFIED Comment: : -Urine Culture pending -D/C IV fluids, pt tolerating oral intake and is on 2L FR -CBC and CMP for tuesday morning -Urology to see pt this afternoon, will follow recommendations 07/31/18: - S/p TURP May, 2018 and straight cath in ED. - UA: leukocytes, hematuria, proteinuria, + 4 WBCs - UCX pending, cont IV Nacl 0.9% @ 50ml/hr. - Monitor urine output, recheck labs in the morning. - Consult to Urology for recommendations. (3) A-fib Current Visit: Yes Status: Acute Base Code: I48.91 - UNSPECIFIED ATRIAL FIBRILLATION Comment: 08/01/18: -Chronic Atrial Fibrillation -Telemetry monitoring -Continue home dose of Metoprolol and Xarelto 07/31/18: - chronic atrial fibrillation. Currently in a fib on monitor. - rate controlled on Metoprolol 50mg BID PO , with holding parameters for HR <55 , SBP <110. - anticoagualted on Xarelto 15mg QD. [id number]: 4 (4) CAD, multiple vessel Current Visit: Yes Status: Acute Base Code: I25.10 - ATHSCL HEART DISEASE OF [place] CORONARY ARTERY W/O ANG PCTRS Comment: 08/01/18: -Continue Metoprolol, ASA 81, Atorvastatin -Continue Telemetry monitoring 07/31/18: - s/p stents x 2 - Metoprolol 50mg BID PO, ASA 81mg, Atorvastatin 20mg QHS. 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 (5) CHF (congestive heart failure) Current Visit: Yes Status: Acute Base Code: I50.9 - HEART FAILURE, UNSPECIFIED Comment: 08/01/18: -D/C IVF d/t pt 2L fluid restriction -Continue Metoprolol, Atorvastation, ASA and Lasix q. 48 hours -Daily weights, I/Os, fluid restriction, low sodium diet 07/31/18: - EF ?, CXR: negative for any acute cardiopulmonary findings. - Metoprolol 50mg BID PO, Atorvastatin 20mg, ASA 81, Lasix 20mg Q48H - Daily weights, I/Os, fluid restriction to 1.5 liters, Low sodium diet. (6) DVT (deep venous thrombosis) Current Visit: Yes Status: Acute Base Code: I82.409 - ACUTE EMBOLISM AND THOMBOS UNSP DEEP VN UNSP LOWER EXTREMITY Comment: 08/01/2018: -Continue therapeutic anticoagulation with xarelto. (7) Hypothyroid Current Visit: Yes Status: Acute Base Code: E03.9 - HYPOTHYROIDISM, UNSPECIFIED Comment: 08/01/18: -Continue Levothyroxine 07/31/18: - Levothyroxine 100mcg daily. (8) Patient is full code Current Visit: Yes Status: Acute Base Code: Z78.9 - OTHER SPECIFIED HEALTH STATUS Comment: 08/01/18: -Pt is a full code this admission 07/31/18: - Full Code (9) Renal insufficiency Current Visit: Yes Status: Acute Base Code: N28.9 - DISORDER OF KIDNEY AND URETER, UNSPECIFIED Comment: 08/01/18: -Per laborer wrecking and salvaging, baseline Creatinine is 1.7 and GFR 37. -IVF d/c'd d/t pt CHF and renal insufficiency and pt tolerating PO fluids -CMP ordered for Tuesday morning 07/31/18: - Bun/Cr: 51/1.8, Gfr 39. CKD III - No baseline to establish acute vs. chronic - Repeat electrolytes in the morning. - Avoid nephrotoxic medications, gentle hydration with IV fluids considering CHF. (10) Diabetes Current Visit: No Status: Chronic Qualifiers: Diabetes mellitus type: type 2 Base Code: E11.9 - TYPE 2 DIABETES MELLITUS WITHOUT COMPLICATIONS Comment: 08/01/2018: -Blood Glucose 189 @ 0600 -Continue Linagliptin -ADA diet 07/31/18: - Linagliptin 5mg, serum glucose 186 - accuchecks AcHs, ADA diet. Results - Labs Result Diagrams: 08/01/18 06:23 08/01/18 06:23 Labs Last 24 Hours: Laboratory Results - last 24 hr 08/01/18 08/01/18 06:23 06:23 WBC 9.5 RBC 3.78 L Hgb 11.2 L Hct 34.4 L MCV 91.0 MCH 29.6 MCHC 32.6 RDW 13.4 Plt Count 184 MPV 10.5 H Neutrophils % 85.0 H Band Neutrophils % 3.0 Eosinophils % Not Reportable Basophils % Not Reportable Lymphocytes 6.0 L Monocytes 5.0 Metamyelocytes 1.0 Platelet Estimate Normal RBC Morphology Normal Sodium 137 Potassium 3.5 Chloride 100 Carbon Dioxide 23.0 Anion Gap 14.0 BUN 49 H Creatinine 1.8 H Estimated GFR 39 Random Glucose 189 H Calcium 8.6 L DVT/PE Assessment - Risk for VTE Risk for VTE: No Risk Level: High Risk Assessment Date: 07/31/18 Risk Assessment Time: 09:54 VTE Orders Placed or Will Be Placed: Yes - Active Medicaitons Current Medications: Current Medications Acetaminophen (Tylenol 500mg Tab) 1,000 mg PO Q6H PRN PRN Reason: PAIN - MILD(1-4)/FEVER Aspirin (Aspirin Chewable) 81 mg PO DAILY [facility] Last Admin: 08/01/18 09:41 Dose: 81 mg Atorvastatin Calcium (Lipitor) 20 mg PO QHS [facility] Last Admin: 07/31/18 21:35 Dose: Not Given Ciprofloxacin (Cipro) 500 mg PO Q12H [facility] Furosemide (Lasix) 20 mg PO Q48H [facility] Last Admin: 07/31/18 10:47 Dose: 20 mg Sodium Chloride () 1,000 mls @ 50 mls/hr IV .Q20H PRN PRN Reason: LARGE VOLUME IV Last Infusion: 08/01/18 09:00 Dose: Infused Levothyroxine Sodium (Synthroid) 100 mcg PO DAILYTHY [facility] Last Admin: 08/01/18 06:17 Dose: 100 mcg Metoprolol Tartrate (Lopressor) 25 mg PO BID [facility] Last Admin: 08/01/18 09:41 Dose: 25 mg Non-Formulary Medication (Linagliptin [Tradjenta]) 5 mg PO DAILY [facility] Last Admin: 08/01/18 09:41 Dose: 5 mg Rivaroxaban (Xarelto) 15 mg PO 1900 [facility] Last Admin: 07/31/18 18:31 Dose: 15 mg AMI Plan - Labs Result Diagrams: 08/01/18 06:23 08/01/18 06:23
[2018-08-01] MEDS ORDERED: CIPROFLOXACIN HCL 500 MG TABLET PO SCH (18:00)
[2018-08-01] MEDS: ATORVASTATIN 20 MG TABLET PO SCH (18:28)
[2018-08-01] MEDS: RIVAROXABAN 15 MG TABLET PO SCH (18:28)
[2018-08-01 20:03] LABS: BASO % 0.2 % (0-6); EOS % 1.8 % (0-6); GRAN % 75.9 % (47-80); HEMATOCRIT 37.6 % (42.0-52.0); HEMOGLOBIN 12.1 gm/dl (14.0-18.0); LYMPH % 10.5 % (16-45); MEAN CORPUSCULAR HGB CONC 32.2 g/dl (32-36); MEAN PLATELET VOLUME 10.3 fl (7.4-10.4); MONO % 11.6 % (0-9); PLATELET COUNT 203 K/uL (130-400); RED BLOOD COUNT 4.13 M/uL (4.40-5.70); RED CELL DISTRIBUTION WIDTH 13.6 % (11.5-14.5); WHITE BLOOD COUNT W/O DIFF 9.7 K/uL (4.2-12.2)
[2018-08-01 20:05] LABS: MEAN CORPUSCULAR HEMOGLOBIN 29.2 pg (27-33)
[2018-08-01 20:17] LABS: ALB/GLOB RATIO 1.1 (1.1-1.8); ALBUMIN 3.2 g/dL (4.0-5.0); ALKALINE PHOSPHATASE 77 U/L (40-129); ALT/SGPT 37 U/L (<41); AST/SGOT 33 U/L (10.0-50.0); BLOOD UREA NITROGEN 51 mg/dL (8-23); CREATININE 1.7 mg/dL (0.7-1.2); EST GLOMERULAR FILTRATION RATE 41 mL/min; GLUCOSE,RANDOM 216 mg/dL (74-109)
--- NOTE | 2018-08-01 22:21 | Discharge Summary ---
Providers Discharge Summary Date: 08/01/18 Date of admission: 07/31/18 01:37 Attending physician: JENNI CASTREJON Consults: Consult Orders 07/31/18 02:20 Consult NOW Consulting Provider: KRISTINA GONZALES Physician Instructions: Reason For Exam: pyelonephritis, renal insufficiency, hx of urinary Physical Exam - Vital Signs Vital Signs: Vital Signs - Last 24 Hrs Temp Pulse Resp BP Pulse Ox 08/01/18 18:00 97.7 F 137 H 18 90/60 100 08/01/18 14:00 97.7 F 131 H 18 129/68 100 08/01/18 10:00 97.7 F 128 H 18 107/63 97 08/01/18 09:00 128 H 16 08/01/18 06:00 99.1 F 116 H 16 111/83 94 L - General General Appearance: Alert, Oriented x3, Cooperative, Mild distress Limitations: No limitations - Head Head exam: Normal inspection - Eye Eye exam: Normal appearance, PERRL, EOMI Pupils: Normal accommodation - ENT ENT exam: Normal exam, Mucous membranes moist Ear exam: negative: External canal tenderness Nasal Exam: negative: Discharge, Sinus tenderness Mouth exam: Normal external inspection, Tongue normal Teeth exam: negative: Dental caries Throat exam: negative: Tonsillar erythema, Tonsillar exudate - Neck Neck exam: negative: Tenderness - Respiratory Respiratory exam: Normal lung sounds bilaterally. negative: Respiratory distress - Cardiovascular Cardiovascular Exam: Irregular rhythm, Tachycardia. negative: Regular rate Peripheral Pulses: 1+: Dorsalis Pedis (R), Dorsalis Pedis (L) - GI/Abdominal GI/Abdominal exam: Soft, Normal bowel sounds. negative: Tenderness - Rectal Rectal exam: Deferred - exam: Deferred - Extremities Extremities exam: Normal inspection, Full ROM, Normal capillary refill. negative: Tenderness - Back Back exam: Reports: Normal inspection, Full ROM. Denies: CVA tenderness (R), CVA tenderness (L), Muscle spasm, Rash noted, Tenderness - Neurological Neurological exam: Alert, CN II-XII intact, Normal gait, Oriented X3 - Psychiatric Psychiatric exam: Normal affect, Normal mood - Skin Skin exam: Dry, Intact, Normal color, Warm Hospitalization - Hospitalization Admission Diagnosis: Sepsis secondary UTI - Problem List/Discharge Diagnosis (1) Sepsis Current Visit: Yes Status: Acute Base Code: A41.9 - SEPSIS, UNSPECIFIED ORGANISM Comment: 08/01/18: -Tachycardia, low grade temp -WBC decreased from 12.6 to 9.5 -D/C IV fluids d/t pt 2L fluid restriction and tolerating oral fluids well -Change IV Ciprofloxacin BID to PO Ciprofloxacin 500mg PO BID x 12 more days -Urine and Blood cultures pending -repeat CBC w/diff with morning labs -Possible d/c on 08/02/2018 if tolerating PO Cipro and WBC decrease 07/31/18: - tachycardia, febrile, elevated WBCs, renal insufficiency. - on IV Ciprofloxacin 400mg Q12H, IV Nacl 0.9% 50mL/hr, Acetaminophen 325mg Q4H PRN for fever. - repeat CBC w/ diff with morning labs, Urine cultures pending. Blood cultures ordered but abx started prior. (2) Urinary tract infection Current Visit: Yes Status: Acute Discharge Diagnosis: Hematuria presence: without hematuria Base Code: N39.0 - URINARY TRACT INFECTION, SITE NOT SPECIFIED Comment: : -Urine Culture pending -D/C IV fluids, pt tolerating oral intake and is on 2L FR -CBC and CMP for tuesday morning -Urology to see pt this afternoon, will follow recommendations 07/31/18: - S/p TURP May, 2018 and straight cath in ED. - UA: leukocytes, hematuria, proteinuria, + 4 WBCs - UCX pending, cont IV Nacl 0.9% @ 50ml/hr. - Monitor urine output, recheck labs in the morning. - Consult to Urology for recommendations. (3) A-fib Current Visit: Yes Status: Acute Base Code: I48.91 - UNSPECIFIED ATRIAL FIBRILLATION Comment: 08/01/18: -Chronic Atrial Fibrillation -Telemetry monitoring -Continue home dose of Metoprolol and Xarelto 07/31/18: - chronic atrial fibrillation. Currently in a fib on monitor. - rate controlled on Metoprolol 50mg BID PO , with holding parameters for HR <55 , SBP <110. - anticoagualted on Xarelto 15mg QD. [id number]: 4 (4) CAD, multiple vessel Current Visit: Yes Status: Acute Base Code: I25.10 - ATHSCL HEART DISEASE OF [place] CORONARY ARTERY W/O ANG PCTRS Comment: 08/01/18: -Continue Metoprolol, ASA 81, Atorvastatin -Continue Telemetry monitoring 07/31/18: - s/p stents x 2 - Metoprolol 50mg BID PO, ASA 81mg, Atorvastatin 20mg QHS. - continuous night monitor. (5) CHF (congestive heart failure) Current Visit: Yes Status: Acute Base Code: I50.9 - HEART FAILURE, UNSPECIFIED Comment: 08/01/18: -D/C IVF d/t pt 2L fluid restriction -Continue Metoprolol, Atorvastation, ASA and Lasix q. 48 hours -Daily weights, I/Os, fluid restriction, low sodium diet 07/31/18: - EF ?, CXR: negative for any acute cardiopulmonary findings. - Metoprolol 50mg BID PO, Atorvastatin 20mg, ASA 81, Lasix 20mg Q48H - Daily weights, I/Os, fluid restriction to 1.5 liters, Low sodium diet. (6) DVT (deep venous thrombosis) Current Visit: Yes Status: Acute Base Code: I82.409 - ACUTE EMBOLISM AND THOMBOS UNSP DEEP VN UNSP LOWER EXTREMITY Comment: 08/01/2018: -Continue therapeutic anticoagulation with xarelto. (7) Hypothyroid Current Visit: Yes Status: Acute Base Code: E03.9 - HYPOTHYROIDISM, UNSPECIFIED Comment: 08/01/18: -Continue Levothyroxine 07/31/18: - Levothyroxine 100mcg daily. (8) Patient is full code Current Visit: Yes Status: Acute Base Code: Z78.9 - OTHER SPECIFIED HEALTH STATUS Comment: 08/01/18: -Pt is a full code this admission 07/31/18: - Full Code (9) Renal insufficiency Current Visit: Yes Status: Acute Base Code: N28.9 - DISORDER OF KIDNEY AND URETER, UNSPECIFIED Comment: 08/01/18: -Per pathology technician, baseline Creatinine is 1.7 and GFR 37. -IVF d/c'd d/t pt CHF and renal insufficiency and pt tolerating PO fluids -CMP ordered for Tuesday07/31/18: - Bun/Cr: 51/1.8, Gfr 39. CKD III - No baseline to establish acute vs. chronic - Repeat electrolytes in the morning. - Avoid nephrotoxic medications, gentle hydration with IV fluids considering CHF. (10) Diabetes Current Visit: No Status: Chronic Discharge Diagnosis: Diabetes mellitus type: type 2 Base Code: E11.9 - TYPE 2 DIABETES MELLITUS WITHOUT COMPLICATIONS Comment: 08/01/2018: -Blood Glucose 189 @ 0600 -Continue Linagliptin -ADA diet 07/31/18: - Linagliptin 5mg, serum glucose 186 - accuchecks AcHs, ADA diet. - Hospitalization Course Disposition: Acute Care Hospital Transfer Procedures: Imaging and X-Rays 07/31/18 00:21 CHEST 2 VIEWS [RAD] Stat Cardiology Procedures 08/01/18 20:02 EKG NOW Abnormal Labs: Abnormal Lab Results 07/31/18 07/31/18 07/31/18 Range/Units 00:15 00:40 00:40 WBC 12.6 H (4.2-12.2) K/uL RBC 4.03 L (4.40-5.70) M/uL Hgb 11.9 L (14.0-18.0) gm/dl Hct 36.5 L (42.0-52.0) % MPV (7.4-10.4) fl Neutrophils % 82.0 H (47-80) % Band Neutrophils % 6.0 H (0-5) % Lymphocytes % (16-45) % Monocytes % (0-9) % Lymphocytes 4.0 L (16-45) % Chloride 96 L (98-107) mmol/L Carbon Dioxide 21.0 L (22-29) mmol/L Anion Gap 19.0 H (7-16) BUN 51 H (8-23) mg/dL Creatinine 1.8 H (0.7-1.2) mg/dL Random Glucose 186 H (74-109) mg/dL Calcium (8.8-10.2) mg/dL Total Protein 5.9 L (6.6-8.7) g/dL Albumin 3.3 L (4.0-5.0) g/dL Urine Protein 100 mg/dl H (NEGATIVE) Urine Blood Large H (NEGATIVE) Ur Leukocyte Esterase Large H (NEGATIVE) 08/01/18 08/01/18 08/01/18 Range/Units 06:23 06:23 19:50 WBC (4.2-12.2) K/uL RBC 3.78 L 4.13 L (4.40-5.70) M/uL Hgb 11.2 L 12.1 L (14.0-18.0) gm/dl Hct 34.4 L 37.6 L (42.0-52.0) % MPV 10.5 H (7.4-10.4) fl Neutrophils % 85.0 H (47-80) % Band Neutrophils % (0-5) % Lymphocytes % 10.5 L (16-45) % Monocytes % 11.6 H (0-9) % Lymphocytes 6.0 L (16-45) % Chloride (98-107) mmol/L Carbon Dioxide (22-29) mmol/L Anion Gap (7-16) BUN 49 H (8-23) mg/dL Creatinine 1.8 H (0.7-1.2) mg/dL Random Glucose 189 H (74-109) mg/dL Calcium 8.6 L (8.8-10.2) mg/dL Total Protein (6.6-8.7) g/dL Albumin (4.0-5.0) g/dL Urine Protein (NEGATIVE) Urine Blood (NEGATIVE) Ur Leukocyte Esterase (NEGATIVE) 08/01/18 Range/Units 19:50 WBC (4.2-12.2) K/uL RBC (4.40-5.70) M/uL Hgb (14.0-18.0) gm/dl Hct (42.0-52.0) % MPV (7.4-10.4) fl Neutrophils % (47-80) % Band Neutrophils % (0-5) % Lymphocytes % (16-45) % Monocytes % (0-9) % Lymphocytes (16-45) % Chloride (98-107) mmol/L Carbon Dioxide (22-29) mmol/L Anion Gap 17.0 H (7-16) BUN 51 H (8-23) mg/dL Creatinine 1.7 H (0.7-1.2) mg/dL Random Glucose 216 H (74-109) mg/dL Calcium (8.8-10.2) mg/dL Total Protein 6.0 L (6.6-8.7) g/dL Albumin 3.2 L (4.0-5.0) g/dL Urine Protein (NEGATIVE) Urine Blood (NEGATIVE) Ur Leukocyte Esterase (NEGATIVE) Condition at Discharge: (2) Stable Discharge Medications - Discharge Medications Home Medications: Ambulatory Orders Levothyroxine Sodium [Synthroid] 100 mcg PO DAILYTHY 05/14/14 [Last Taken ] Metoprolol Tartrate 50 mg PO BID 12/18/14 [Last Taken 07/30/18] Cholecalciferol (Vitamin D3) [Vitamin D3] 5,000 unit PO DAILY 05/03/16 [Last Taken 07/30/18] Aspirin 81 mg PO DAILY 06/19/16 [Last Taken 07/30/18] Atorvastatin Calcium [Lipitor] 20 mg PO QPM 06/19/16 [Last Taken 07/30/18] Linagliptin [Tradjenta] 5 mg PO DAILY 10/24/17 [Last Taken 07/30/18] Furosemide [Lasix] 20 mg PO ASDIR 12/09/17 [Last Taken 07/30/18] Rivaroxaban [Xarelto] 15 mg PO QPM 07/31/18 [Last Taken 07/30/18] Discharge Plan - Discharge Instructions Activity at Discharge: Increase Activity as Tolerated Diet at Discharge: Regular Diet Quality Measures - Quality Measures Quality Measures: Atrial Fibrillation & Atrial Flutter: Chronic Anticoagulation Therapy, Advance Directives, Coronary Artery Disease: Antiplatelet Therapy, Documentation of Current Medications in Medical Record, Elder Maltreatment Screen and Follow-Up Plan, Heart Failure, Screening for High Blood Pressure and F/U Documented - Current Medications Quality Measure: Measure #130: Documentation of Current Medications Documentation of Current Medications: <Current Medications Documented/Reviewed> [W6937] - Blood Pressure Screening Quality Measure: Screening for High Blood Pressure and Follow-Up Documented Does Patient Have Any of the Following: No Blood Pressure Classification: Normal BP Reading Systolic Measurement: 98 Diastolic Measurement: 59 Screening for High Blood Pressure: < Normal BP, F/U Not Required > [Z3419] - Atrial Fibrillation and Atrial Flutter Quality Measure: Atrial Fibrillation & Atrial Flutter: Chronic Anticoagulation Therapy Does Patient Have Any of the Following: No CHADS2 Risk Stratification: Age 75 or Greater, Hypertension, Diabetes Mellitus, Heart Failure or Impaired LVSF Risk Stratification Summary: One or more high risk factors OR more than one moderate risk factor exists. [V8972] Anticoagulation Therapy: <Oral anticoagulant Prescribed> [M4696] - Coronary Artery Disease Quality Measure: Measure #6: Coronary Artery Disease (CAD) Antiplatelet Therapy: <ASA or clopidogrel prescribed> [4739P] - Heart Failure (NORIS/ARB Therapy) Quality Measure: Heart Failure Left Ventricular Systolic Function: Unknown NORIS Inhibitor or ARB Therapy for LVSD: Not Eligible - Heart Failure (Beta-selene Therapy) Quality Measure: Heart Failure Left Ventricular Systolic Function: Unknown Beta-Selene Therapy for LVEF < 40%: <Beta-Selene Therapy Prescribed> [B1374] - Advance Directives Quality Measure: Measure #47: Care Plan Advance Directives Established: No Advance Directives Information Provided To Patient: Already Provided Advance Directives on File: No Living Will: No Power of Manager Pharmacy: No Advance Care Planning: <Care Plan/Decision Maker Documented; Discussed & Documented> [5263F] - Elder Abuse Suspicion Index Screening: Elder Abuse Suspicion Index Screening Rely on people for bathing, dressing, shopping, banking, etc: No Prevented from getting food, clothes, medication, etc: No Made to feel shamed or threatened by someone: No Forced to sign papers or use money against will: No Feel afraid, touched in ways not wanted or hurt physically: No Poor eye contact, withdrawn, malnourished, cuts or bruises: No Screening Result: Negative result EASI Reference Information: Channing BURNHAM, Byron C, Addison D, Mary Mason.Development and validation of a tool to assist physicians identification of elder abuse: The Elder Abuse Suspicion Index (EASI ). Journal of Elder Abuse and Neglect, 2008; 20 (3): 276-300. - Elder Maltreatment Screen Quality Measures: Elder Maltreatment Screen and Follow-Up Plan Elder Maltreatment Screen: <Negative, No Follow-Up Plan Required> [O9854]
--- NOTE | 2018-08-01 22:27 | Physician Addendum ---
Addendum (Physician) 08/01/18 22:23 Contacted by Nursing Staff at approximately 1940 to notify of Rapid Response being called d/t pacemaker/defibrillator firing x 2. Nursing Staff reported gallego skin tone. VSS. EKG, CBC, CMP, Mag level ordered after incident. Consulted with Dr. Rahman who suggested pt be transferred in order to have interrogation of pacemaker done more quickly and to have higher acuity care. Spoke with [facility] admitting physican and on-call cardiology for [facility] who both agreed pt should be evaluated at higher level of care hospital.
--- NOTE | 2018-08-02 09:49 | Medical Records Consult ---
DATE OF CONSULTATION: 08/01/2018 REASON FOR CONSULTATION: Urinary tract infection. SUMMARY: Thank you, Dr. Rahman, for asking me to see this patient who was admitted to [facility] with urinary tract infection. He underwent transurethral resection of large prostate causing obstruction and bladder calculi on 07/12/2018. He was having recurring urinary tract infections leading up to the evaluation which revealed a large obstructing prostate with bladder stones. The stones were removed. Prostate was resected and the patient still had some trouble voiding completely postoperatively. However, a few weeks afterward, he began to void more effectively, and his postvoid residuals were normalizing. Over the weekend, he began having severe dysuria and then gradually developed fevers reportedly up to over 100 degrees Fahrenheit and presented to the [facility]. A bladder scan there was only 74 mL but his urinalysis showed 3-6 red cells, numerous white cells, 0-2 epithelials, and 4+ bacteria. Culture is currently pending. He was started on IV ciprofloxacin. Of note, he also has a history of atrial fibrillation and had restarted his Xarelto recently. PAST MEDICAL HISTORY: Noted per the chart. PAST SURGICAL HISTORY: Noted per the chart. MEDICATIONS: 1. Xarelto. 2. Cipro. 3. Accord. ALLERGIES: MORPHINE, which causes GI distress. SOCIAL HISTORY: Positive for former tobacco use. Otherwise unremarkable. FAMILY HISTORY: Negative for urological problems. REVIEW OF SYSTEMS: Ten-plus per the chart. PHYSICAL EXAMINATION: GENERAL: The patient appears awake, alert, oriented x3. Currently in no distress. VITAL SIGNS: Temperature 98.6, heart rate 86, blood pressure 110/60. NECK: No masses or tenderness. CHEST: Normal expansion without any wheezing. He has no cough currently. ABDOMEN: Soft, nontender, nondistended without any appreciable masses. There is no costovertebral angle tenderness. LABORATORY DATA: Reviewed. Urinalysis was noted as above in the History of Present Illness. His white count at admission was 12.6, hemoglobin 11.9, creatinine 1.8 with a BUN of 51. RADIOGRAPHIC DATA: No pertinent imaging was performed at the time of admission. IMPRESSION: 1. Urinary tract infection. 2. Benign prostatic hypertrophy with obstruction, status post recent transurethral resection of the prostate and removal of bladder calculi. 3. 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 PLAN: The patient is clinically improving. He has been afebrile for the last 24 hours. His urine culture is still pending while he remains on IV ciprofloxacin. If there is an alternative antibiotic to prescribe for him to use to finish a 10-day course at home, that would be preferable in my opinion. I have also asked Nursing to perform a repeat bladder scan while he remains in the hospital. Assuming he continues to improve, he should be ready for discharge within the next 24 hours and I have asked him to make an appointment to follow up in the [facility] in the next 2-3 weeks. Thank you, Dr. Rahman, for asking me to see this patient today. Please let me know if I can be of further assistance. JAMES
== END 2018-08-01 21:30 | disposition short-term general hospital (02) | DRG 872 ==
LOC: ER 23:58 → MEDSURG 07-31 01:37
PROVIDERS: ADMIT Internal Medicine; ATTEND Internal Medicine
DX: A41.9 Sepsis, unspecified organism (principal); N12 Tubulo-interstitial nephritis, not specified as acute or chronic; N39.0 Urinary tract infection, site not specified; I82.409 Acute embolism and thrombosis of unspecified deep veins of unspecified lower extremity; I48.91 Unspecified atrial fibrillation; Z95.811 Presence of heart assist device; I25.10 Atherosclerotic heart disease of native coronary artery without angina pectoris; I48.2 Chronic atrial fibrillation; N28.9 Disorder of kidney and ureter, unspecified; I50.9 Heart failure, unspecified; Z79.01 Long term (current) use of anticoagulants; E11.9 Type 2 diabetes mellitus without complications; E03.9 Hypothyroidism, unspecified; I10 Essential (primary) hypertension; I25.2 Old myocardial infarction; Z95.5 Presence of coronary angioplasty implant and graft; Z95.0 Presence of cardiac pacemaker; Z85.828 Personal history of other malignant neoplasm of skin; Z87.891 Personal history of nicotine dependence
CPT/HCPCS: 80053; 81001; 85027; 71046; J0744; 80048; 83735; 84484; 85025; 87040; 93005; 93010; 96365; 99223; 99239; 99285

== ENCOUNTER 2019-09-05 10:00 | Emergency (ER) | payer MEDICARE, BC ==
[2019-09-05] MEDS ORDERED: ASPIRIN 81 MG CHEWABLE TABLET PO ONE (10:02)
[2019-09-05] MEDS ORDERED: 0.9 % SODIUM CHLORIDE 1000ML 1,000 ML IV ONE (10:02)
[2019-09-05] MEDS ORDERED: AL HYDROX/MAG HYDROX 30ML UD PO ONE (10:04)
[2019-09-05] MEDS ORDERED: ONDANSETRON HCL IV 4 MG/2 ML VIAL IV ONE (10:04)
--- NOTE | 2019-09-05 10:12 | Emergency Department Record ---
History of Present Illness - General Chief Complaint: Chest Pain Stated Complaint: CHEST PAIN Time Seen by Provider: 09/05/19 10:02 Source: Patient, RN notes reviewed - History of Present Illness Initial Comments: epigastric abdominal pain and started about 1 hour ago after breakfast and he has been similiar pains on and off for the last week after eating. PMH pacerdef placed in 2016 and one year ago defibrilatory going off because of an infection and he was treated at [facility]. Primary Dr is [facility] in [place] - Related Data Previous Rx's Medication Instructions Recorded Hydrocodone/Acetaminophen [[place] 1 each PO Q6HR #12 tablet 09/05/19 5-325 Tablet] Allergies Allergy/AdvReac Type Severity Reaction Status Date / Time morphine AdvReac Intermediate VOMITING Verified 09/05/19 10:06 Review of Systems Reviewed: No additional complaints except as noted below Constitutional: Reports: As per HPI. Denies: Chills, Fever, Malaise, Night sweats, Weakness, Weight change Eyes: Reports: As per HPI. Denies: Eye discharge, Eye pain, Photophobia, Vision change ENT: Reports: As per HPI. Denies: Congestion, Dental pain, Ear pain, Epistaxis, Hearing loss, Throat pain Respiratory: Reports: As per HPI. Denies: Cough, Dyspnea, Hemoptysis, Stridor, Wheezes Cardiovascular: Reports: As per HPI, Chest pain. Denies: Arrhythmia, Dyspnea on exertion, Edema, Murmurs, Orthopnea, Palpitations, Paroxysmal nocturnal dyspnea, Rheumatic Fever, Syncope Endocrine: Reports: As per HPI. Denies: Fatigue, Heat or cold intolerance, Polydipsia, Polyuria Gastrointestinal: Reports: As per HPI, Abdominal pain. Denies: Constipation, Diarrhea, Hematemesis, Hematochezia, Melena, Nausea, Vomiting Genitourinary: Reports: As per HPI. Denies: Dysuria, Frequency, Hematuria, Incontinence, Retention, Testicular pain, Testicular mass, Urgency Musculoskeletal: Reports: As per HPI. Denies: Arthralgia, Back pain, Gout, Joint swelling, Myalgia, Neck pain Skin: Reports: As per HPI. Denies: Bruising, Change in color, Change in hair/nails, Lesions, Pruritus, Rash Neurological: Reports: As per HPI. Denies: Abnormal gait, Confusion, Headache, Numbness, Paresthesias, Seizure, Tingling, Tremors, Vertigo, Weakness Psychiatric: Reports: As per HPI. Denies: Anxiety, Auditory hallucinations, Depression, Homicidal thoughts, Suicidal thoughts, Visual hallucinations Hematological/Lymphatic: Reports: As per HPI. Denies: Anemia, Blood Clots, Easy bleeding, Easy bruising, Swollen glands Past Medical History - SOCIAL HISTORY Smoking Status: Former smoker - RESPIRATORY Hx Respiratory Disorders: No - CARDIOVASCULAR Hx Cardio Disorders: Yes Hx Cardiac Cath: Yes Hx CHF: Yes Hx Edema: Yes Hx Heart Attack: Yes (2016) Hx Hypertension: Yes Hx Irregular Heartbeat: Yes (afib) Hx Pacemaker/Defib: Yes - NEURO Hx Neuro Disorders: No - GI Hx GI Disorders: No Hx Diverticulitis: Yes - Hx Genitourinary Disorders: Yes Hx Prostate Problems: Yes (recent TURP; Takes Flomax) - ENDOCRINE Hx Endocrine Disorders: Yes Hx Diabetes: Yes Hx Thyroid Disease: Yes (hypothyroid) - MUSCULOSKELETAL Hx Musculoskeletal Disorders: No - PSYCH Hx Psych Problems: No - HEMATOLOGY/ONCOLOGY Hx Hematology/Oncology Disorders: No Hx Bruising: Yes (takes Xarelto) Hx 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) Hx Chemotherapy: No Hx Radiation Therapy: No Family Medical History *Cancer Comment: Aunt Hx Heart Disease: Mother Physical Exam - General General Appearance: Alert, Oriented x3, Cooperative, No acute distress - Head Head exam: Normal inspection - Eye Eye exam: Normal appearance, PERRL Pupils: Normal accommodation - ENT ENT exam: Normal exam, Mucous membranes moist, Normal external ear exam, Normal orophraynx, TM's normal bilaterally Ear exam: Normal external inspection. negative: External canal tenderness Nasal Exam: Normal inspection. negative: Discharge, Sinus tenderness Mouth exam: Normal external inspection, Tongue normal Teeth exam: Normal inspection. negative: Dental caries Throat exam: Normal inspection. negative: Tonsillar erythema, Tonsillar exudate - Neck Neck exam: Normal inspection, Full ROM. negative: Tenderness - Respiratory Respiratory exam: Normal lung sounds bilaterally. negative: Respiratory distress - Cardiovascular Cardiovascular Exam: Regular rate, Normal rhythm, Normal heart sounds - GI/Abdominal GI/Abdominal exam: Soft, Normal bowel sounds, Tenderness - Rectal Rectal exam: Deferred - exam: Deferred - Extremities Extremities exam: Normal inspection, Full ROM, Normal capillary refill. negative: Tenderness - Back Back exam: Reports: Normal inspection, Full ROM. Denies: Muscle spasm, Rash noted, Tenderness - Neurological Neurological exam: Alert, Normal gait, Oriented X3, Reflexes normal - Psychiatric Psychiatric exam: Normal affect, Normal mood - Skin Skin exam: Dry, Intact, Normal color, Warm Course - Reevaluation(s) Reevaluation #1: feeling better 09/05/19 15:57 Medical Decision Making - Data Complexity MDM Data: Labs Ordered and/or Reviewed (liver enzymes elevated), X-Ray Ordered and/or Reviewed (US GB sludge and thickened) - Lab Data Result diagrams: 09/05/19 10:00 09/05/19 10:00 Disposition Clinical Impression: Cholecystitis, Biliary colic, Elevated liver enzymes Disposition: Home, Self-Care Condition: (1) Good Instructions: Cholecystitis (ED), Biliary Colic (ED) Additional Instructions: follow up with Dr Simmons on tuesday, or if worse go to [facility] department follow up with family in one week arthur for pain one every 4-6 hours Prescriptions: Hydrocodone/Acetaminophen [[place] 5-325 Tablet] 1 each PO Q6HR #12 tablet Forms: Patient Portal Access Time of Disposition: 16:03 Quality - Quality Measures Quality Measures: N/A - Blood Pressure Screening Does Patient Have Any of the Following: No Blood Pressure Classification: Hypertensive Reading Systolic Measurement: 118 Diastolic Measurement: 94 Screening for High Blood Pressure: < Pre-Hypertensive BP, F/U Documented > [G8950] Pre-Hypertensive Follow-up Interventions: Referral to alternative/primary care provider.
[2019-09-05 10:32] LABS: ABSOLUTE NEUTROPHIL COUNT 7.41; BASO % 0.6 % (0-6); EOS % 4.5 % (0-6); GRAN % 68.7 % (47-80); HEMATOCRIT 48.9 % (42.0-52.0); HEMOGLOBIN 15.9 gm/dl (14.0-18.0); LYMPH % 17.8 % (16-45); MEAN CELL VOLUME 92.8 fl (81-97); MEAN CORPUSCULAR HEMOGLOBIN 30.2 pg (27-33); MEAN CORPUSCULAR HGB CONC 32.5 g/dl (32-36); MEAN PLATELET VOLUME 10.5 fl (7.4-10.4); MONO % 8.4 % (0-9); PLATELET COUNT 203 K/uL (130-400); RED BLOOD COUNT 5.27 M/uL (4.40-5.70); RED CELL DISTRIBUTION WIDTH 13.9 % (11.5-14.5); WHITE BLOOD COUNT W/O DIFF 10.8 K/uL (4.2-12.2)
[2019-09-05 10:47] LABS: BILIRUBIN,TOTAL 1.9 mg/dL (0.2-1.0)
[2019-09-05 10:48] LABS: BLOOD UREA NITROGEN 49 mg/dL (8-23); EST GLOMERULAR FILTRATION RATE 34 mL/min; TOTAL PROTEIN 7.6 g/dL (6.6-8.7)
[2019-09-05 10:51] LABS: GLUCOSE,RANDOM 203 mg/dL (74-109)
[2019-09-05 10:53] LABS: ALBUMIN 4.9 g/dL (4.0-5.0); BILIRUBIN,DIRECT 1.1 mg/dL (0-0.3)
[2019-09-05] MEDS ORDERED: HYDROMORPHONE HCL 2 MG/ML VIAL IM ONE (11:02)
[2019-09-05] MEDS ORDERED: HYDROMORPHONE HCL 2 MG/ML VIAL IVP ONE (11:06)
[2019-09-05] MEDS ORDERED: 0.9 % SODIUM CHLORIDE 500ML 500 ML IV SCH (11:15)
--- NOTE | 2019-09-05 12:18 | CT SCAN REPORT ---
EXAMINATION: CT Abdomen and Pelvis without IV Contrast EXAM DATE: 09/05/2019 11:38 AM TECHNIQUE: Standard protocol CT imaging of the abdomen and pelvis was performed without intravenous c ontrast. INDICATION: epigastric abdominal pain COMPARISON: May 2018 CT scan. ENCOUNTER: Not applicable CT ABDOMEN AND PELVIS FINDINGS: Lung Bases: Included extent of the lung bases are clear. Cardiomegaly. Hepatobiliary: The liver has a normal size with a smooth surface. Normal gallbladder. Pancreas: The pancreas is normal. Spleen: The spleen is not enlarged. Adrenals: The adrenal glands are normal. Kidneys, Ureters, & Bladder: Both kidneys have a normal size and morphology. There is no hydronephro sis. Diffuse bladder wall thickening. Gastrointestinal: The stomach and small bowel are normal with no obstruction or inflammation. Colonic diverticulosis without evidence diverticulitis. Reproductive Organs: Markedly enlarged prostate gland. Lymphatic System: There is no adenopathy within the abdomen or pelvis. Vasculature: Moderate to severe atherosclerosis. Peritoneum: No free fluid, free air, or inflammation Abdominal wall & Musculoskeletal: Fat-containing left inguinal hernia. Assessment of the solid organs, soft tissues, and vascular structures is overall limited on noncontra st imaging, IMPRESSION: 1. No acute findings within the abdomen or pelvis. 2. Markedly enlarged prostate gland with mild diffuse bladder wall thickening likely reflecting parti al bladder outlet obstruction. 3. Fat-containing left inguinal hernia. Dictated by: Archie Beltre MD on 09/05/2019 12:13 PM. .
--- NOTE | 2019-09-05 12:19 | RADIOLOGY REPORT ---
EXAMINATION: Two View Chest Radiographs EXAM DATE: 09/05/2019 11:50 AM TECHNIQUE: Frontal and lateral views INDICATION: epigastric and chest pain COMPARISON: July 2018 chest x-ray ENCOUNTER: Not applicable FINDINGS: PA and lateral views the chest show mild cardiac megaly with pulmonary vascularity which appears with in normal limits. There is no focal lung consolidation, pleural effusion, or pneumothorax. Left-sided cardiac pacemaker and defibrillator is in stable position. IMPRESSION: No acute cardiopulmonary abnormality. Dictated by: Archie Beltre MD on 09/05/2019 12:17 PM. .
--- NOTE | 2019-09-05 14:58 | ULTRASOUND REPORT ---
EXAMINATION: ABDOMEN, LIMITED EXAM DATE: 09/05/2019 2:09 PM TECHNIQUE: Right upper quadrant ultrasound INDICATION: right upper quad pain COMPARISON: None ENCOUNTER: Initial FINDINGS: Liver: Liver appears homogeneous. No suspicious liver lesion is seen. Gallbladder: A 7 x 4 mm nonshadowing echogenic focus in the gallbladder which is movement, likely rel ated to sludge ball. Gallbladder wall thickening measuring 3.8 mm thickness. No pericholecystic fluid . 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 Common bile duct: The common bile duct measures between 6.4 and 8.4 mm diameter, considered at the up per limits of normal for the patient's age of 79 years. Pancreas: The pancreas is partly obscured by overlying bowel gas. The visualized portions the pancrea tic head and body appear unremarkable. Aorta: The proximal abdominal aorta measures 1.6 cm AP dimension. The mid abdominal aorta measures 2. 0 cm AP dimension. The distal abdominal aorta measures 2.9 cm AP dimension. Right kidney: The right kidney measures 10.5 x 5.8 x 6.1 cm, with cortical thinning but without evide nce of hydronephrosis. Additional findings: No free fluid IMPRESSION: 1. Gallbladder wall thickening with a mobile sludge ball. No shadowing gallstones. No sonographic Mu rphy sign. 2. Common bile duct is at the upper limits of normal for the patient's age. Dictated by: Jimbo Good MD on 09/05/2019 2:52 PM. .
[2019-09-05 15:46] LABS: URINE APPEARANCE CLEAR; URINE BILIRUBIN SMALL (NEGATIVE); URINE BLOOD NEGATIVE (NEGATIVE); URINE COLOR YELLOW; URINE GLUCOSE (UA) NEGATIVE (NEGATIVE); URINE KETONE NEGATIVE (NEGATIVE); URINE LEUKOCYTE ESTERASE NEGATIVE (NEGATIVE); URINE NITRITE NEGATIVE (NEGATIVE); URINE PROTEIN NEGATIVE (NEGATIVE); URINE UROBILINOGEN 0.2 E.U./dL (0.20 - 1.00)
== END 2019-09-05 16:25 | disposition home or self-care (01) ==
LOC: ER 10:00
DX: K80.42 Calculus of bile duct with acute cholecystitis without obstruction (principal); R94.5 Abnormal results of liver function studies; Z95.810 Presence of automatic (implantable) cardiac defibrillator; R07.9 Chest pain, unspecified; I25.2 Old myocardial infarction; I10 Essential (primary) hypertension; I50.9 Heart failure, unspecified; Z87.891 Personal history of nicotine dependence; E11.9 Type 2 diabetes mellitus without complications
CPT/HCPCS: 99284 ×2; 96374; 96372; 96375; 83690; 85025; 85730; 80076; 80048; 81003; 84484; 71046; 76705; 74176; 93005; 93010; J2405; J1170